=== PATIENT | female | born 1990 | race Caucasian/White ===

== ENCOUNTER 2020-01-07 14:02 | Emergency (ER) | payer MEDICAID, SELFPAY | END 2020-01-07 16:48 | disposition left against medical advice (07) | PROVIDERS: Emergency Provider Emergency Medicine | DX: R50.9 Fever, unspecified (principal); M79.10 Myalgia, unspecified site | CPT/HCPCS: 99281 ==

== ENCOUNTER 2020-04-16 08:51 | Emergency (ER) | payer MEDICAID, SELFPAY ==
--- NOTE | 2020-04-16 11:25 | PC.NURSE ---
NOT PRESENT FOR TRIAGE AT 1129
== END 2020-04-16 12:07 | disposition left against medical advice (07) ==
PROVIDERS: Emergency Provider Emergency Medicine
DX: R10.9 Unspecified abdominal pain (principal)

== ENCOUNTER 2020-08-07 14:08 | Emergency (ER) | payer MEDICAID, SELFPAY ==
[2020-08-07 14:14] VITALS: BP 133/80; PULSE 91; RESP 18; TEMP 36.4; O2SAT 98; BMI 24.2
== END 2020-08-07 16:33 | disposition left against medical advice (07) ==
PROVIDERS: Emergency Provider Emergency Medicine
DX: R10.9 Unspecified abdominal pain (principal)
CPT/HCPCS: 99281; 99282

== ENCOUNTER 2021-01-24 08:41 | Emergency (ER) | payer MEDICAID, SELFPAY | END 2021-01-24 09:42 | disposition left against medical advice (07) | PROVIDERS: Emergency Provider Emergency Medicine | DX: R21 Rash and other nonspecific skin eruption (principal) ==

== ENCOUNTER 2021-06-19 00:44 | Emergency (ER) | payer MEDICAID, SELFPAY ==
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
[2021-06-19 01:04] VITALS: BP 130/86; PULSE 116; RESP 24; TEMP 36.8; O2SAT 100; BMI 22.3
[2021-06-19 01:09] LABS: MANUAL DIFF FLAG NO
[2021-06-19 01:10] LABS: Basophils Absolute Auto 0.1 X10*3/uL (0.0-0.2); Basophils Percent Auto 0.4 % (0-2); Eosinophils Percent Auto 0.2 % (0-4); Hematocrit 34.7 % (37.0-47.0); Hemoglobin 11.6 g/dl (12.0-16.0); Imm Gran Abs Auto 0.05 X10*3/uL (0.00-0.03); Imm Gran Pct Auto 0.4 % (0.0-0.4); Lymphocytes Absolute Auto 1.4 X10*3/uL (1.2-4.9); Lymphocytes Percent Auto 9.9 % (20-40); Mean Corpuscular HGB Conc 33.4 g/dl (31.0-35.0); Mean Corpuscular Hemoglobin 30.1 pg (27.0-33.0); Mean Corpuscular Volume 89.9 fL (80.0-98.0); Monocytes Absolute Auto 0.8 X10*3/uL (0.1-1.2); Monocytes Percent Auto 5.4 % (2-11); Neutrophils Absolute Auto 11.7 x10*3/uL (2.0-8.3); Neutrophils Percent Auto 83.7 % (45-73); Platelet Count 504 X10*3/uL (160-400); Red Blood Count 3.86 X10*6/uL (4.20-5.50); Red Cell Distribution Width 11.9 % (11.0-16.0)
[2021-06-19 01:20] LABS: INTERNATIONAL NORM RATIO 1.1 (0.9-1.1)
[2021-06-19 01:29] LABS: COVID-19 Test Negative (Negative)
[2021-06-19] MEDS: Diphth,Pertus(ACell),Tet Adult 0.5 ML SYRINGE IM (01:34)
[2021-06-19] MEDS: 0.9 % Sodium Chloride 1,000 ML 999 ML IV (01:34)
[2021-06-19 01:36] LABS: Alanine Aminotransferase 10 U/L (0-31); Albumin Level 4.5 g/dL (3.5-5.0); Alkaline Phosphatase 104 U/L (39-117); Anion Gap 17 (12-20); Aspartate Amino Transferase 20 U/L (5-31); Bilirubin Total 0.9 mg/dL (0.0-1.0); Blood Urea Nitrogen 13 mg/dL (9-16); Calcium 10.1 mg/dL (8.4-10.2); Carbon Dioxide 20 mmol/L (22-29); Chloride 106 mmol/L (96-108); Estimated Glomerular Filt Rate > 60; Glucose Random 104 mg/dL (60-115); Lipase 15 U/L (8-78); Potassium 3.9 mmol/L (3.3-5.1); Sodium 139 mmol/L (135-145)
[2021-06-19] MEDS: iohexoL 350 MG/ML 100 ML INFUS..BTL 85 ML IV (01:37)
[2021-06-19 01:43] LABS: HCG Quantitative < 2 mIU/mL
[2021-06-19] MEDS: Ketorolac Tromethamine 30 MG/ML VIAL 15 MG IVPUSH (01:47)
[2021-06-19] MEDS: ondansetron HCL 4 MG/2 ML VIAL IVPUSH (02:26)
[2021-06-19 02:44] VITALS: BP 120/78; PULSE 89; RESP 16; TEMP 36.9; O2SAT 98
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
== END 2021-06-19 04:09 | disposition home or self-care (01) ==
PROVIDERS: Emergency Provider Student in an Organized Health Care Education/Training Program
DX: S30.1XXA Contusion of abdominal wall, initial encounter (principal); Z20.822 Contact with and (suspected) exposure to COVID-19; V86.95XA Unspecified occupant of 3- or 4- wheeled all-terrain vehicle (ATV) injured in nontraffic accident, initial encounter; Y93.9 Activity, unspecified; Y92.9 Unspecified place or not applicable; Y99.9 Unspecified external cause status
CPT/HCPCS: 70450; 71260; 72125; 74177; 80053; 83690; 84702; 85025; 85610; 86850; 86900; 86901; 87635; 90471; 90715; 96361; 96374; 96375; 99283; 99284; J1885; J2405; Q9967

== ENCOUNTER 2022-02-09 12:11 | Outpatient (REF) | payer MEDICAID, SELFPAY ==
--- NOTE | ~2022-02-09 | US_ITS ---
EXAMINATION: US PELVIS CLINICAL INFORMATION: Pelvic and perineal pain. COMPARISON: Pelvic ultrasound dated 08/20/[address] scan of the abdomen and pelvis dated 06/19/2021. TECHNIQUE: Ultrasound of the pelvis is performed using both transabdominal and transvaginal transducers along with Doppler. Transvaginal imaging is performed due to inadequate visualization transabdominally. FINDINGS: Uterus: The uterus is anteverted/retroflexed and measures 7.5 x 4.2 x 5.7 cm. A scar is seen in the anteroinferior uterine segment with associated deformity. Mild subjacent anechoic fluid is seen without abnormality. The endometrial stripe measures up to 0.8 cm at the level the fundus without focal abnormality. The cervix is closed with an approximate length of 4 cm. Minimal anechoic fluid within the cervical canal. Anechoic nabothian cysts posteriorly measuring 1.0 cm. Trace free fluid in the cul-de-sac. Right ovary measures 3.6 x 1.8 x 2.9 cm. Volume 10 mL. Anechoic cyst with mild debris measures 2.8 cm. Doppler showed no abnormal vascular flow. Left ovary measures 4.0 x 2.1 x 1.9 cm. Small anechoic follicles are seen measuring up to 1.6 cm. Volume 8.4 mL. Doppler showed no abnormal vascular flow. The urinary bladder is mildly distended without focal abnormality. US/US pelvic and transvaginal IMPRESSION: 1. Anteverted/retroflexed uterus with scar and associated anechoic fluid similar to the recent CT scan. No significant new abnormality. 2. Bilateral ovarian cysts/follicles demonstrate benign features, within normal limits for a patient of this age. No follow-up is recommended at this time.
== END 2022-02-09 12:12 | disposition home or self-care (01) ==
LOC: HO.US 12:11
PROVIDERS: PCP Registered Nurse; Visit Provider Registered Nurse
DX: R10.2 Pelvic and perineal pain (principal)
CPT/HCPCS: 76830; 76856

== ENCOUNTER 2022-03-14 12:06 | Outpatient (REF) | payer MEDICAID, SELFPAY ==
[2022-03-14 18:45] LABS: CT PCR NOT DETECTED (Not Detect.)
[2022-03-14 18:46] LABS: NG PCR NOT DETECTED (Not Detect.)
== END 2022-03-14 12:07 | disposition home or self-care (01) ==
LOC: HO.LNP 12:06
PROVIDERS: PCP Registered Nurse; Visit Provider Obstetrics & Gynecology
DX: Z11.3 Encounter for screening for infections with a predominantly sexual mode of transmission (principal); R10.2 Pelvic and perineal pain
CPT/HCPCS: 0353U; 99202

== ENCOUNTER 2022-03-24 13:54 | Emergency (ER) | payer MEDICAID, SELFPAY ==
--- NOTE | ~2022-03-24 | XR_ITS ---
EXAMINATION: XR CHEST CLINICAL INFORMATION: Cough and fever. COMPARISON: CT chest 09/19/2021 TECHNIQUE: 2 views of the chest were obtained. FINDINGS: No significant abnormality is noted involving the heart, lungs, mediastinum, bony thorax or soft tissues. XR/XR chest 2V IMPRESSION: Unremarkable examination.
[2022-03-24 13:57] VITALS: BP 149/84; PULSE 93; RESP 20; TEMP 36.6; O2SAT 99; BMI 25.0
--- NOTE | 2022-03-24 13:57 | ED.URI ---
HPI - URI/Sore Throat General Chief Complaint: Upper Respiratory Symptoms <AINSLEY Kent Last Filed: 03/24/22 14:01> Stated Complaint: cough, hard to breathe, fever <AINSLEY Kent Last Filed: 03/24/22 14:01> Time Seen by Provider: 03/24/22 15:43 <AINSLEY Kent Last Filed: 03/24/22 14:01> Source: patient <AINSLEY Rosenbaum Last Filed: 03/24/22 16:57> Mode of arrival: ambulatory <AINSLEY Rosenbaum Last Filed: 03/24/22 16:57> History of Present Illness HPI Narrative: 32-year-old female with no significant past medical history presenting to the ED complaining of dry cough, mild SOB, fever T-max 102 degrees, myalgias, nasal congestion, rhinorrhea, sore throat, and clogged ears x1 week. Denies chest pain, abdominal pain, pedal edema, sick contacts, recent travel <AINSLEY Rosenbaum Last Filed: 03/24/22 16:57> MD elicited complaint: cough, sore throat, rhinorrhea and nasal congestion <AINSLEY Rosenbaum Last Filed: 03/24/22 16:57> Related Data Home Medications: Previous Rx's Medication Instructions Recorded benzonatate 100 mg capsule 100 mg PO TID PRN cough #14 caps 03/24/22 fluticasone propionate 50 2 spray intranasal DAILY #16 grams 03/24/22 mcg/actuation nasal spray,suspension (Flonase Allergy Relief) prednisone 20 mg tablet 40 mg PO DAILY 5 days #10 tabs 03/24/22 <AINSLEY Kent Last Filed: 03/24/22 14:01> Allergies/Adverse Reactions: Allergies Allergy/AdvReac Type Severity Reaction Status Date / Time No Known Allergies Allergy Verified 03/14/22 12:16 [No Known Allergies*] <AINSLEY Kent Last Filed: 03/24/22 14:01> Review of Systems Review of Systems: Constitutional: + Fever, No Chills ENT/Mouth: + Ear clogging, + Nasal Congestion, + sore throat, + Rhinorrhea, No Swallowing Difficulty Cardiovascular: No Chest Pain, + SOB Respiratory: + Cough, No Sputum, No Wheezing Gastrointestinal: No Nausea, No Vomiting, No Abdominal pain Musculoskeletal: No joint pain, + Myalgias Skin: No Skin Lesions, No rash Neuro: No Weakness, No Numbness, No Paresthesias <AINSLEY Rosenbaum - Last Filed: 03/24/22 16:57> Yes all other systems are reviewed and are negative <AINSLEY Rosenbaum - Last Filed: 03/24/22 16:57> Constitutional: Constitutional: Reports as per HPI <AINSLEY Rosenbaum - Last Filed: 03/24/22 16:57> [facility] Past Medical History Attestation statement: The following information was validated with the patient. <AINSLEY Rosenbaum - Last Filed: 03/24/22 16:57> Medical History: Medical History No known health problems <AINSLEY Kent - Last Filed: 03/24/22 14:01> Surgical History: Surgical History H/O tubal ligation Previous section <AINSLEY Kent - Last Filed: 03/24/22 14:01> Family History Family History: Family History Maternal Grandmother Breast CA <AINSLEY Kent - Last Filed: 03/24/22 14:01> Social History Social History: Social History Patient Tobacco Use Status: Never used Tobacco <AINSLEY Kent - Last Filed: 03/24/22 14:01> Physical Exam Vital Signs: Vital Signs: Last Vital Signs Temp 98 F 03/24/22 13:57 Pulse 93 03/24/22 13:57 Resp 20 03/24/22 13:57 BP 149/84 H 03/24/22 13:57 Pulse Ox 99 03/24/22 13:57 O2 Del Method 03/24/22 13:57 BMI result Body Mass Index 25.0 <AINSLEY Kent - Last Filed: 03/24/22 14:01> Vital Signs: Last Vital Signs Temp 98 F 03/24/22 13:57 Pulse 93 03/24/22 13:57 Resp 20 03/24/22 13:57 BP 149/84 H 03/24/22 13:57 Pulse Ox 99 03/24/22 13:57 O2 Del Method 03/24/22 13:57 BMI result Body Mass Index 25.0 <AINSLEY Rosenbaum - Last Filed: 03/24/22 16:57> Vital Signs: Last Vital Signs Temp 98 F 03/24/22 13:57 Pulse 93 03/24/22 13:57 Resp 20 03/24/22 13:57 BP 149/84 H 03/24/22 13:57 Pulse Ox 99 03/24/22 13:57 O2 Del Method 03/24/22 13:57 BMI result Body Mass Index 25.0 <Ulices Lake MD - Last Filed: 03/31/22 16:24> Const: General: cooperative, healthy appearing and no acute distress <AINSLEY Rosenbaum - Last Filed: 03/24/22 16:57> Orientation/consciousness: patient oriented x3 <AINSLEY Rosenbaum - Last Filed: 03/24/22 16:57> Limitations: no limitations <AINSLEY Rosenbaum - Last Filed: 03/24/22 16:57> HEENT: Head: Yes normal to inspection and Yes atraumatic <AINSLEY Rosenbaum - Last Filed: 03/24/22 16:57> Ears: hearing grossly normal bilaterally, external ears normal, TM's normal bilaterally and mastoids normal <AINSLEY Rosenbaum - Last Filed: 03/24/22 16:57> General nose exam: Normal external nose present <AINSLEY Rosenbaum - Last Filed: 03/24/22 16:57> Face and sinus: Yes normal facial exam <AINSLEY Rosenbaum - Last Filed: 03/24/22 16:57> Mouth: Normal oral and palatal mucosa present <AINSLEY Rosenbaum - Last Filed: 03/24/22 16:57> Throat: Yes posterior oropharynx normal, Yes tonsils normal, No uvula midline, No peritonsillar mass, No uvula laterally displaced and No uvular edema <AINSLEY Rosenbaum - Last Filed: 03/24/22 16:57> Eyes: General: appearance normal, both eyes and all related structures <AINSLEY Rosenbaum - Last Filed: 03/24/22 16:57> EOM: EOMs intact bilaterally <AINSLEY Rosenbaum - Last Filed: 03/24/22 16:57> Neck: Neck: Yes normal visual inspection and Yes no meningeal signs <AINSLEY Rosenbaum - Last Filed: 03/24/22 16:57> Resp: Effort & Inspection: normal respiratory effort and no respiratory distress <AINSLEY Rosenbaum - Last Filed: 03/24/22 16:57> Auscultation: clear to auscultation bilaterally, no crackles, no rales and no rhonchi <AINSLEY Rosenbaum - Last Filed: 03/24/22 16:57> Cardio: Rate: regular rate <AINSLEY Rosenbaum - Last Filed: 03/24/22 16:57> Heart sounds: S1 normal heart sound present and S2 normal heart sound present <AINSLEY Rosenbaum - Last Filed: 03/24/22 16:57> Skin: Rashes: no rashes <AINSLEY Rosenbaum - Last Filed: 03/24/22 16:57> Wounds: no wounds <AINSLEY Rosenbaum - Last Filed: 03/24/22 16:57> Neuro: General: patient oriented x3, tone normal and no meningeal signs <AINSLEY Rosenbaum - Last Filed: 03/24/22 16:57> Gait exam (Neuro): Normal gait present <AINSLEY Rosenbaum - Last Filed: 03/24/22 16:57> Extrem: General: Yes normal to inspection, Yes no pedal edema and Yes no calf tenderness <AINSLEY Rosenbaum - Last Filed: 03/24/22 16:57> Course Course Course Narrative: BINDU- 32yoF presenting to the ED with complaints of fevers up to 102.0, sore throat, dry cough x 1 week. Has resolved nausea/vomiting. Denies any other symptoms complaints or concerns at this time. Plan: CXR, COVID/RSV/flu swab patient will be sent back to the waiting room to be evaluated [place] [facility] <AINSLEY Kent - Last Filed: 03/24/22 14:01> RME- 32yoF presenting to the ED with complaints of fevers up to 102.0, sore throat, dry cough x 1 week. Has resolved nausea/vomiting. Denies any other symptoms complaints or concerns at this time. Plan: CXR, COVID/RSV/flu swab patient will be sent back to the waiting room to be evaluated [place] [facility]. -1619--chest x-ray unremarkable. COVID-19/influenza/RSV and rapid strep negative Results discussed with patient including worrisome signs and symptoms and strict return precautions, and when to return to the emergency department. They verbalized understanding and feel safe for discharge at this time. <AINSLEY Rosenbaum - Last Filed: 03/24/22 16:57> Medical Decision Making Medical Decision Making [facility] Narrative: 32-year-old female with no significant past medical history presenting to the ED complaining of dry cough, mild SOB, fever T-max 102 degrees, myalgias, nasal congestion, rhinorrhea, sore throat, and clogged ears x1 week. On exam vital signs stable, NAD, nontoxic appearing, lungs CTA, no pedal edema. Concern for viral illness vs bronchitis vs pneumonia. Lower suspicion for ACS/PE or DVT. No evidence of GARAGE DOOR TECHNICIAN Plan: COVID-19/influenza/RSV testing, rapid strep, CXR Please refer to course for remaining clinical decision making, interpretation of labs/imaging results, and discussions with consultants and/or family members. <AINSLEY Rosenbaum - Last Filed: 03/24/22 16:57> Differential Diagnosis Differential Diagnoses: The differential diagnosis associated with the presentation includes <AINSLEY Rosenbaum Last Filed: 03/24/22 16:57> As above <AINSLEY Rosenbaum Last Filed: 03/24/22 16:57> Lab Data [facility] Lab Attestation statement: I reviewed the patient's lab results. <AINSLEY Rosenbaum Last Filed: 03/24/22 16:57> Labs: Lab Results 03/24/22 03/24/22 Range/Units 14:10 14:10 Influenza Type A (PCR) NEGATIVE (Negative) Influenza Type B (PCR) NEGATIVE (Negative) RSV RNA Qual (PCR) NEGATIVE (Negative) SARS-CoV-2 RNA (RT-PCR) NEGATIVE (Negative) S. pyogenes GrpA ANNETTA Negative (Negative) <AINSLEY Kent - Last Filed: 03/24/22 14:01> Lab Results 03/24/22 03/24/22 Range/Units 14:10 14:10 Influenza Type A (PCR) NEGATIVE (Negative) Influenza Type B (PCR) NEGATIVE (Negative) RSV RNA Qual (PCR) NEGATIVE (Negative) SARS-CoV-2 RNA (RT-PCR) NEGATIVE (Negative) S. pyogenes GrpA ANNETTA Negative (Negative) <AINSLEY Rosenbaum - Last Filed: 03/24/22 16:57> Lab Results 03/24/22 03/24/22 Range/Units 14:10 14:10 Influenza Type A (PCR) NEGATIVE (Negative) Influenza Type B (PCR) NEGATIVE (Negative) RSV RNA Qual (PCR) NEGATIVE (Negative) SARS-CoV-2 RNA (RT-PCR) NEGATIVE (Negative) S. pyogenes GrpA ANNETTA Negative (Negative) <Ulices Lake MD - Last Filed: 03/31/22 16:24> Radiology Impression Discussion of test interpretation with radiology: I have reviewed the radiologist's reading. <AINSLEY Rosenbaum - Last Filed: 03/24/22 16:57> Prescription Management I considered prescription management with: Antiviral and Antibiotic <AINSLEY Rosenbaum - Last Filed: 03/24/22 16:57> Attestation Attending Attestation: I reviewed NIGHT SHIFT MANAGER/PA/Resident note, assessment and plan. I agree with the documentation, assessment and plan unless otherwise stated. <Ulices Lake MD - Last Filed: 03/31/22 16:24> Discharge Plan Discharge Clinical Impression: Acute viral syndrome <AINSLEY Kent - Last Filed: 03/24/22 14:01> Patient Disposition: Home, Self-Care <AINSLEY Kent - Last Filed: 03/24/22 14:01> Instructions: Viral Syndrome (ED) <AINSLEY Kent - Last Filed: 03/24/22 14:01> Additional Instructions: You tested negative for COVID-19, flu, and RSV. You tested negative for strep throat Your x-rays unremarkable Flonase is a nasal decongestant. Tessalon Perles for cough, take as needed. Prednisone as a steroid Rest Stay hydrated Take Tylenol and Motrin as needed Follow-up with her doctor. If symptoms persist or worsen return to the ED <AINSLEY Kent - Last Filed: 03/24/22 14:01> Prescriptions: New prednisone 20 mg tablet 40 mg PO DAILY 5 Days Qty: 10 0RF benzonatate 100 mg capsule 100 mg PO TID PRN (Reason: cough) Qty: 14 0RF fluticasone propionate [Flonase Allergy Relief] 50 mcg/actuation spray,suspension 2 spray intranasal DAILY Qty: 16 0RF Rx Instructions: administer into each nostril <AINSLEY Kent - Last Filed: 03/24/22 14:01> Referrals: Hampton,Saniya, HUMAN RESOURCES TRAINING MANAGER [Primary Care Provider] - 1 week <AINSLEY Kent - Last Filed: 03/24/22 14:01> Interventions: ED Discharge Assessment Last Done: 03/24/22 17:07 <AINSLEY Kent - Last Filed: 03/24/22 14:01> Discharge Date/Time: 03/24/22 17:08 <AINSLEY Kent - Last Filed: 03/24/22 14:01>
[2022-03-24 14:39] LABS: IDNOW Serial# 6674DD1D; Strep A Nucleic Acid Negative (Negative)
[2022-03-24 15:05] LABS: Influenza A PCR NEGATIVE (Negative); Influenza B PCR NEGATIVE (Negative); Resp Syncy Virus RNA Qual PCR NEGATIVE (Negative); SARS COV2 PCR INHOUSE NEGATIVE (Negative)
== END 2022-03-24 17:08 | disposition home or self-care (01) ==
PROVIDERS: Physician Assistant Medical; Emergency Provider Emergency Medicine; PCP Registered Nurse
DX: B34.9 Viral infection, unspecified (principal); M79.10 Myalgia, unspecified site; R50.9 Fever, unspecified; R06.02 Shortness of breath; Z20.822 Contact with and (suspected) exposure to COVID-19; Z20.828 Contact with and (suspected) exposure to other viral communicable diseases; Z79.899 Other long term (current) drug therapy
CPT/HCPCS: 0241U; 71046; 87651; 99282; 99283

== ENCOUNTER 2022-03-29 08:00 | Outpatient (REF) | payer MEDICAID, SELFPAY ==
--- NOTE | ~2022-03-29 | MR_ITS ---
EXAMINATION: MR PELVIS WITH AND WITHOUT CONTRAST CLINICAL INFORMATION: History of C-sections with pelvic pain, lower anterior. COMPARISON: CT abdomen/pelvis 06/19/2021. TECHNIQUE: Multiplanar multisequential MR images were obtained of the pelvis with and without IV contrast. A total of 5.5 mL of intravenous Gadavist was administered. FINDINGS: The uterus is anteverted and slightly retroflexed measuring 8.5 x 3.7 x 4.8 (fundus to cervix x anteroposterior x transverse). There is myometrial thinning and scarring along the anteroinferior uterus, consistent with prior C-sections. No focal uterine mass. Normal thickness of the junctional zone. The endometrium measures 0.6 cm in thickness without discrete focal abnormality. The cervical length is 4.4 cm. There are a few T2 bright nabothian cysts in the cervix, largest measuring 1.1 cm (3:10). The T2 dark cervical stroma is preserved. No suspicious cervical mass noted. Multiple functional follicles are identified in both ovaries. No suspicious adnexal mass. The urinary bladder is mildly distended without focal abnormality. There is no adenopathy in the pelvis, small pelvic sidewall lymph nodes are nonspecific. Lower anterior abdominal wall scarring (6:11) without evidence of significant fat stranding, measurable collection or mass. In the large [id number] coronal T2 images, two normally positioned kidneys are seen without hydronephrosis. Mild colonic diverticulosis with no significant pericolonic inflammatory changes. No evidence of bowel obstruction. Visualized osseous structures are unremarkable. MR/MR pelvis wo/w con IMPRESSION: Expected postsurgical changes following prior C-sections with anterior lower uterine myometrial thinning and scarring, and lower anterior abdominal wall scar. Aside from these findings, no other significant abnormalities are noted to explain the patient's symptoms.
== END 2022-03-29 08:01 | disposition home or self-care (01) ==
LOC: HO.MRI 08:00
PROVIDERS: Visit Provider Obstetrics & Gynecology
DX: R10.2 Pelvic and perineal pain (principal)
CPT/HCPCS: 72197; A9585

== ENCOUNTER → 2022-04-19 10:03 | Outpatient (BNVA) | payer MEDICAID, SELFPAY | PROVIDERS: PCP Registered Nurse; Visit Provider Obstetrics & Gynecology | DX: R10.2 Pelvic and perineal pain (principal) | CPT/HCPCS: 99212 ==

== ENCOUNTER 2022-05-10 13:09 | Emergency (ER) | payer MEDICAID, SELFPAY ==
--- NOTE | 2022-05-10 13:18 | ED_ITS ---
HPI - Ear Problem General Chief complaint: Ear Problems Stated complaint: R ear pain/Sore throat Source: patient Mode of arrival: ambulatory Limitations: no limitations History of Present Illness HPI Narrative: 32-year-old female without significant medical history presents with severe right-sided ear pain and sore throat times a week not improving. Reports subjective fevers, chills, fatigue, malaise. Denies any sick contacts. Patient denies chest pain, shortness of breath, headache, vision changes, dizziness, difficulty controlling secretions, changes in voice, nausea, vomiting, abdominal pain, cough Related Data Previous Rx's Medication Instructions Recorded benzonatate 100 mg capsule 100 mg PO TID PRN cough #14 caps 03/24/22 fluticasone propionate 50 2 spray intranasal DAILY #16 grams 03/24/22 mcg/actuation nasal spray,suspension (Flonase Allergy Relief) prednisone 20 mg tablet 40 mg PO DAILY 5 days #10 tabs 03/24/22 amoxicillin 875 mg-potassium 1 tab PO BID 10 days #20 tabs 05/10/22 clavulanate 125 mg tablet ciprofloxacin 0.3 %-dexamethasone 4 drp otic (ears) BID 7 days #7.5 05/10/22 0.1 % ear drops,suspension mL (Ciprodex) prednisone 20 mg tablet 40 mg PO DAILY 5 days #10 tabs 05/10/22 Allergies Allergy/AdvReac Type Severity Reaction Status Date / Time No Known Allergies Allergy Verified 05/10/22 13:18 [No Known Allergies*] Review of Systems Review of Systems: Constitutional : No Weight loss, + Fever, + Chills, + Fatigue, + Malaise ENT/Mouth : + sore throat, No Rhinorrhea, + ear pain Eyes: No Eye Pain, No Swelling, No Redness Cardiovascular : No Chest Pain, No SOB, No Dyspnea on Exertion, No Orthopnea, No Edema, No Palpitations Respiratory : No Cough, No Sputum, No Wheezing Gastrointestinal : No Nausea, No Vomiting, No Diarrhea, No Constipation, No a bdominal Pain, No Hematochezia, No Melena Genitourinary : No Dysuria, No Urinary Frequency, No Hematuria, Musculoskeletal : No joint pain, + Myalgias, No Joint Swelling Skin : No Skin Lesions, No rash Neuro : No Weakness, No Numbness, No Dizziness, No Headache Psych : No Anxiety/Panic, No Depression All other systems reviewed and are negative Yes all other systems are reviewed and are negative [facility] Past Medical History Attestation statement: The following information was validated with the patient. Source: old records reviewed and nursing notes reviewed Medical History No known health problems Surgical History H/O tubal ligation Previous section Family History Family History Maternal Grandmother Breast CA Social History Social History Patient Tobacco Use Status: Never used Tobacco Physical Exam Vital Signs: Vital Signs: vss Appearance: Alert.? Oriented X3.? No acute distress.? Patient is speaking in full sentences controlling secretions well. Head: Normocephalic, atraumatic, no step-offs or deformities Eyes: Pupils equal, round and reactive to light.? ENT: Pharynx normal , uvula midline, normal tonsils, no signs of abscess. Bilateral tympanic membranes, ear canals erythematous, bulging, edema noted to ear canal. Pain with manipulation of right external ear. No pain with manipulation of left external ear. No mastoid tenderness. No submandibular adenopathy or occipital adenopathy. Neck: Normal inspection.? Neck supple.? CVS: Normal heart rate and rhythm.? Pulses normal.? Respiratory: No respiratory distress.? Breath sounds normal.? Abdomen: Soft and nontender.? Skin: Skin warm and dry.? Normal skin color.? Normal skin turgor.? Extremities: No lower extremity edema.? No calf ttp. 5/5 strength to bilateral upper and lower extremities Neuro: Oriented X 3.? No motor deficit.? No sensory deficit. CN 2-12 intact Course Reevaluation(s) Reevaluation #1: Educated patient on diagnosis and treatment plan, answered all question, patient verbalizes understanding. At this time patient will be discharged home, advised to return with new or worsening symptoms. Educated on worrisome signs and symptoms and when to return. At this time I feel comfortable discharge home. Time: 13:24 Medical Decision Making Medical Decision Making [facility] Narrative: 1323 32-year-old female presents with fatigue, malaise, myalgias, subjective fevers and chills, right-sided ear pain, sore throat x1 week physical exam significant for Pharynx normal , uvula midline, normal tonsils, no signs of abscess. Bilateral tympanic membranes, ear canals erythematous, bulging, edema noted to ear canal. Pain with manipulation of right external e ar. No pain with manipulation of left external ear. No mastoid tenderness. No submandibular adenopathy or occipital adenopathy. likely bilateral tightness media with right-sided otitis externa. No signs of mastoiditis, malignant otitis. No signs of dental abscess. No signs of peritonsillar abscess, retropharyngeal abscess, epiglottitis. Airway not compromised, patent airway. No signs of Darshan's plan viral testing however patient will be discharged home on Augmentin, Ciprodex for otitis media and externa and due to erythema and ear canal also send prednisone. Differential Diagnosis Differential Diagnoses: The differential diagnosis associated with the presentation includes likely bilateral tightness media with right-sided otitis externa. No signs of mastoiditis, malignant otitis. No signs of dental abscess. No signs of peritonsillar abscess, retropharyngeal abscess, epiglottitis. Airway not compro mised, patent airway. No signs of Darshan's Admission/Observation Consideration of admission/observation: Escalation of care including admi ssion/observation considered Not indicated Core Measures AMI core measures followed: Yes Measure exclusions: not indicated Critical Care Time Critical Care Time Critical Care Time: No Discharge Plan Discharge Clinical Impression: Otitis externa, Otitis media Patient Disposition: Home, Self-Care Instructions: Otitis Externa (ED), Ear Infection (ED) Additional Instructions: Take your medications as prescribed. If you were prescribed antibiotics today, it is important that you take your medication to their entirety, do not skip any doses, do not finish them early. Follow-up with your primary care provider this week. Follow-up with ears Nose and Throat if this does not improve or return with new or worsening symptoms Return to the emergency department with new or worsening symptoms. Such as fevers, chills, chest pain, shortness of breath, nausea, vomiting, dizziness, headache, vision changes, lethargy In case of emergency call 911 Prescriptions: New prednisone 20 mg tablet 40 mg PO DAILY 5 Days Qty: 10 0RF amoxicillin-pot clavulanate 875-125 mg tablet 1 tab PO BID 10 Days Qty: 20 0RF ciprofloxacin-dexamethasone [Ciprodex] 0.3-0.1 % drops,suspension 4 drp otic (ears) BID 7 Days Qty: 7.5 0RF No Action prednisone 20 mg tablet 40 mg PO DAILY 5 Days Qty: 10 0RF benzonatate 100 mg capsule 100 mg PO TID PRN (Reason: cough) Qty: 14 0RF fluticasone propionate [Flonase Allergy Relief] 50 mcg/actuation spray,suspension 2 spray intranasal DAILY Qty: 16 0RF Rx Instructions: administer into each nostril Referrals: Saniya Henson FNP [Primary Care Provider] - 2 days Stand Alone Forms: Work/School Release
[2022-05-10 13:19] VITALS: BP 118/73; PULSE 100; RESP 19; TEMP 36.6; O2SAT 99; BMI 25.0
[2022-05-10 14:07] LABS: COVID-19 Test Negative (Negative); IDNOW Serial# BCCEAD1C
[2022-05-10 14:09] LABS: IDNOW Serial# 9DB6401D; Influenza A Negative (Negative); Influenza B2 Negative (Negative)
[2022-05-10 14:09] LABS: IDNOW Serial# 6674DD1D; Strep A Nucleic Acid Negative (Negative)
== END 2022-05-10 13:34 | disposition home or self-care (01) ==
LOC: HO.ED 13:31
PROVIDERS: Physician Assistant; Emergency Provider Emergency Medicine Emergency Medical Services; PCP Registered Nurse
DX: H66.93 Otitis media, unspecified, bilateral (principal); H60.91 Unspecified otitis externa, right ear; J02.9 Acute pharyngitis, unspecified; Z20.822 Contact with and (suspected) exposure to COVID-19
CPT/HCPCS: 36415; 87502; 87635; 87651; 99282; 99283

== ENCOUNTER → 2022-07-07 12:32 | Outpatient (BNVA) | payer MEDICAID, SELFPAY | PROVIDERS: PCP Registered Nurse; Referring Provider Registered Nurse; Visit Provider Surgery | DX: L72.3 Sebaceous cyst (principal) | CPT/HCPCS: 99202 ==

== ENCOUNTER 2022-07-25 07:48 | Day surgery (SDC) | payer MEDICAID, SELFPAY ==
[2022-07-20 09:46] VITALS: BMI 26.1
--- NOTE | 2022-07-22 10:12 | HO.ANESPROP2 ---
Documented by User: Iman Abdalla NP 07/22/22 10:13 HPI - Anesthesia Eval Consult details Narrative: 32yo F for Left Wide Local Excision Perineal Mass PMFSH Active Problems Active Problems: All Active Problems (Updated 05/11/22 @ 00:02 by Vaughn Coppola) Sebaceous cyst (Acute) Pelvic pain (Acute) Past Medical History Medical History No known health problems Family History Family History Maternal Grandmother Breast CA Surgical History Surgical History H/O tubal ligation Previous section Social History Social History Patient Tobacco Use Status: Never used Tobacco Second Hand Smoke Exposure: No Meds Allergies Allergy/AdvReac Type Severity Reaction Status Date / Time No Known Allergies Allergy Verified 07/07/22 12:41 [No Known Allergies*] Exam Exam Date and Time: July 22, 2022 1012 Height,Weight and Vital Signs: Height 4 ft 11 in Weight 58.513 kg Assessment and Plan Assessment Anesthesia Assessment: Chart Reviewed Documented by User: Babatunde Woo MD 07/25/22 17:30 PMFSH Past Medical History Medical History No known health problems Functional capacity: independent ambulation Family History Family History Maternal Grandmother Breast CA Family history of problems with anesthesia: No Surgical History Surgical History H/O tubal ligation Previous section History of Problems with Anesthesia: No Social History Social History Patient Tobacco Use Status: Never used Tobacco Second Hand Smoke Exposure: No Meds Allergies Allergy/AdvReac Type Severity Reaction Status Date / Time No Known Allergies Allergy Verified 07/07/22 12:41 [No Known Allergies*] Exam Airway Mallampati Class: III TM Dist: >3cm Neck ROM: Full Loose/Missing/Broken Teeth: Yes Assessment and Plan Assessment Anesthesia Assessment: Anesthesia Plan Discussed Final Anesthetic Review Family History of Problems with Anesthesia: No History of Problems with Anesthesia: No NPO: Yes ASA Class: II Final Preanesthetic Review: Meds/Allgs Chart Reviewed, Consent Obtained/Reviewed and Anes Risks/Benef Reviewed Patient Risk: Intermediate Procedure Risk: Intermediate Anesthetic Plan Anesthetic Plan: MAC: and Agree w/ Assess. and Plan Disposition: Standard PACU
--- NOTE | 2022-07-22 12:42 | MHC.SHP ---
Pre-Procedural Eval Section A Date of Service: 07/22/22 The patient is an INPATIENT: No Changes since office visit: No Cold of Flu in the past 2 weeks, No New Medical Problems, No Changes in Medication and No Patient answered all questions The History & Physical has been completed within 30 days and I have reviewed it.: Yes Section B Chief Complaint: Sebaceous cyst Allergies: Allergies Allergy/AdvReac Type Severity Reaction Status Date / Time No Known Allergies Allergy Verified 07/07/22 12:41 [No Known Allergies*] Plan I have reviewed the history and physical and performed a pertinent physical examination on my patient. No changes have occurred unless specified. Time Spent With Patient Time: Total time managing care of this patient today ____ minutes.
[2022-07-25 08:55] VITALS: BP 113/78; PULSE 67; RESP 18; TEMP 37.1; O2SAT 98
--- NOTE | 2022-07-25 12:01 | P.OP_ITS ---
Operative Note Operative Note Date of Service: 07/25/22 Narrative: Preoperative diagnosis: [] Left perineal mass/sebaceous cyst Postop diagnosis: [] same Procedure [] excision left perineal sebaceous cyst Surgeon: [] Jimi Insulation Worker Interior Surface: [] helena Nevarez Type of Anesthesia: [] MAC Indication for surgery: [] final specimen measured approximately 4 x2 cm consistent with a large sebaceous cyst of Left perineum. Findings: [] patient brought to operating room, placed on operative table supine position, after adequate level of MAC anesthesia was induced, patient was placed in lithotomy position and the perineum prepped and draped in usual sterile fashion. 1% lidocaine/ 0.5% Marcaine infiltration of the premarked area in question for excision was performed and then a transverse by elliptical incision encompassing the mass in question was carried down through skin, subcutaneous tissue, and undermined using initially scalpel followed by Bovie. Specimen sent to pathology. The wound Was irrigated, secured hemostasis, and closed using interrupted inverted dermal 3-0 Vicryl sutures followed by Steri-Strips and sterile dressings. Sponge, needle, and instrument counts reported to be correct. Patient tolerated the procedure well and emerged anesthesia stable condition. EBL minimal
[2022-07-25 12:10] VITALS: BP 102/67; PULSE 79; RESP 16; TEMP 36.1; O2SAT 99
[2022-07-25 12:25] VITALS: BP 114/79; PULSE 77; RESP 16; TEMP 36.6; O2SAT 99
== END 2022-07-25 13:48 | disposition home or self-care (01) ==
PROVIDERS: PCP Registered Nurse; Visit Provider Surgery
PROC: (CPT 11424; principal; 2022-07-25 10:20)
DX: L72.3 Sebaceous cyst (principal)
CPT/HCPCS: 11424; 88304; J0690; J2250; J2795; J3010

== ENCOUNTER → 2022-08-03 10:35 | Outpatient (BNVA) | payer MEDICAID, SELFPAY | PROVIDERS: PCP Registered Nurse; Visit Provider Surgery ==

== ENCOUNTER 2023-04-27 09:55 | Outpatient (REF) | payer MEDICAID, SELFPAY ==
[2023-05-02 12:38] LABS: HPV mRNA E6/E7 rflx Not Detected (Not Detected)
== END 2023-04-27 09:56 | disposition home or self-care (01) ==
LOC: HO.LNP 09:55
PROVIDERS: PCP Registered Nurse; Visit Provider Obstetrics & Gynecology
DX: Z01.419 Encounter for gynecological examination (general) (routine) without abnormal findings (principal); Z98.51 Tubal ligation status
CPT/HCPCS: 87624; 88142; 99395

== ENCOUNTER 2023-04-27 09:55 | Outpatient (AMB) | payer MEDICAID, SELFPAY ==
--- NOTE | 2023-04-27 09:59 | A.OFFVIS_ITS ---
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 sebaceous cyst Publications Production Supervisor Required: No Information Interpreted: non-clinical & clinical Health Sanitarian: Health Sanitarian Present (Ruby Partida GABBY) Accompanied by: Self / Same As Patient Allergies No Known Allergies [No Known Allergies*] Allergy (Verified 04/27/23 10:05) Is last menstrual period known: Yes Last menstrual period: 04/17/23 HPI HPI Comments History of Present Illness Details Presenting for annual exam. No complaints. 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 Sexually active: No Sexual orientation: Straight/Heterosexual Gender identity: Female Female Reproductive History Menstrual Age of Menarche: 11 Date of last menstrual period: 04/17/23 control method: permanent sterilization Total pregnancies: 3 Full term: 3 Number of Living Children: 3 Review of Systems Const All systems reviewed & are unremarkable except as noted in HPI and below Card Reports as per HPI Resp Reports as per HPI GI Reports as per HPI and Reports no additional complaints Reports as per HPI Physical Exam Vital Signs: BMI result Body Mass Index 24.2 Const General: cooperative, healthy appearing and comfortable Chest Chest palpation & inspection: normal inspection of the chest and normal palpation of entire chest wall Breast/axilla inspection: normal inspection of the breasts and normal inspection of the axillae Breast/axilla palpation: normal palpation of the breasts, normal palpation of the axillae and no axillary lymphadenopathy Resp Effort & Inspection: normal respiratory effort Auscultation: clear to auscultation bilaterally Percussion: percussion normal Cardio Palpation: normal PMI Rate: regular rate Rhythm: regular rhythm Heart sounds: no murmurs and no rubs Peripheral pulses: Peripheral pulses 2+ throughout GI Inspection: Yes normal to inspection Palpation (GI): Soft to palpation, nontender, no guarding, not rigid and No hepatosplenomegaly present Percussion: Yes normal to percussion Auscultation: normal bowel sounds Rectal Exam - Female: deferred General: Yes bladder normal to palpation External Female Exam: No lesion Speculum Exam - Vagina: normal appearance of the vagina, normal palpation, normal vaginal discharge and not erythematous Speculum Exam - Cervix: normal appearance of the cervix and normal palpation Bimanual exam- vagina & uterus: normal bimanual exam, normal palpation, uterine size normal, bladder normal to palpation, consistency normal and normal palpation Bimanual Exam- Adnexa, other: normal adnexae, no masses and no tenderness Assessment & Plan Assessment & Plan (1) Well woman exam: Code(s): Z01.419 - Encounter for gynecological examination (general) (routine) without abnormal findings Plan: Cotesting done. Counseled the patient about the recommended dietary allowance of 1000 mg of Calcium & 600 IU of vitamin D. The patient was instructed to perform monthly self-breast exams and to schedule an annual exam in a year; All questions answered and the patient verbalized understanding. Instructed the patient to schedule annual exam in a year Coding Level of Care Code Est Pt Prev Care 18-39y(63652) Diagnoses Well woman exam Z01.419
[2023-04-27 10:04] VITALS: BP 108/66; BMI 24.2
== END 2023-04-27 10:27 | disposition home or self-care (01) ==
PROVIDERS: PCP Registered Nurse; Visit Provider Obstetrics & Gynecology
DX: Z01.419 Encounter for gynecological examination (general) (routine) without abnormal findings (principal)
CPT/HCPCS: 99395

== ENCOUNTER 2024-05-03 09:51 | Outpatient (REF) | payer MEDICAID, SELFPAY ==
--- NOTE | ~2024-05-03 | US_ITS ---
EXAMINATION: US ABDOMEN LIMITED CLINICAL INFORMATION: Umbilical vein.. COMPARISON: Correlated to CT dated June 19, 2021. TECHNIQUE: Real-time imaging of the umbilical region using grayscale and color Doppler technique.. FINDINGS: Limited exam. There is an isoechoic soft tissue abnormality in the umbilical region with the likely 7 mm abdominal wall defect. US/US abdomen limited IMPRESSION: Umbilical hernia through a 7 mm abdominal wall defect. Electronically signed by: Christiano Redmond MD 05/03/2024 11:01 AM EDT
== END 2024-05-03 09:52 | disposition home or self-care (01) ==
LOC: HO.US 09:51
PROVIDERS: PCP Registered Nurse; Visit Provider Registered Nurse
DX: K42.9 Umbilical hernia without obstruction or gangrene (principal)
CPT/HCPCS: 76705

== ENCOUNTER → 2024-05-03 09:56 | Outpatient (BNV) | payer MEDICAID, SELFPAY | PROVIDERS: PCP Registered Nurse; Visit Provider Radiology Diagnostic Radiology | DX: K42.9 Umbilical hernia without obstruction or gangrene (principal) | CPT/HCPCS: 76705 ==

== ENCOUNTER 2024-05-06 08:28 | Outpatient (AMB) | payer MEDICAID, SELFPAY ==
--- NOTE | 2024-05-06 08:31 | MHC.OFFVIS ---
Intake Visit Reasons: Umbilical Hernia Intake Note: Patient referred by pcp [facility] for Umbilical hernia. Patient c/o: pain when lifting. Industrial Order Clerk Required: No Accompanied by: Self / Same As Patient Allergies No Known Allergies [No Known Allergies*] Allergy (Verified 05/06/24 08:32) HPI Comments Details: Patient presents with a roughly 2 year history of a symptomatic enlarging umbilical hernia. Because of progression of symptoms, she presents here for further evaluation of like to have this repaired. She otherwise tolerating a diet. He has regular bowel habits. When she especially does workouts, the hernia becomes very symptomatic. Chart was reviewed and patient evaluated. 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 Bilateral groin exam negative. Mildly corpulent abdomen. Roughly 3 cm irreducible umbilical hernia Assessment & Plan Assessment & Plan (1) Incarcerated umbilical hernia: Code(s): K42.0 - Umbilical hernia with obstruction, without gangrene Category: Surgical Plan Risks, benefits, alternatives of open umbilical hernia repair with mesh were reviewed with the patient included but not limited to bleeding, infection, recurrence, numbness, pain, scarring, bowel injury and the patient wishes to proceed. All questions answered. Arrangements will be made for this on a day which is convenient for her. Coding Level of Care Code New Pt Level 5 (98233) Diagnoses Incarcerated umbilical hernia K42.0
== END 2024-05-06 08:36 | disposition home or self-care (01) ==
LOC: HO.HGS 08:28
PROVIDERS: PCP Registered Nurse; Referring Provider Registered Nurse; Visit Provider Surgery
DX: K42.0 Umbilical hernia with obstruction, without gangrene (principal)
CPT/HCPCS: 99214

== ENCOUNTER → 2024-05-06 08:28 | Outpatient (BNVA) | payer MEDICAID, SELFPAY | PROVIDERS: PCP Registered Nurse; Referring Provider Registered Nurse; Visit Provider Surgery | DX: K42.0 Umbilical hernia with obstruction, without gangrene (principal) | CPT/HCPCS: 99212 ==

== ENCOUNTER 2024-06-06 10:29 | Day surgery (SDC) | payer MEDICAID, SELFPAY ==
--- OUTSIDE RECORDS SUMMARY | 2024-05-08 08:09 | XMS_ITS | Encounter Summary ---
Author Organization [facility] Address [address] [place] [address] Care Team Providers Care Overlock Operator Name Role Phone Physician, Pcp Unknown Primary Care Provider Hope vailable Reason for Visit * Reason Comments Eye Problem Swelling beneath bot h eyes Encounter Details Date Type Department Care Team (Late st Contact Info) Description 05/04/2024 10:00 PM EDT - 05/05/2024 1:33 AM EDT Emergency [facility] Emergency [address] [place] [address] Periorbital cellulitis, unspecified laterality (Primary Dx) Discharge Disposition: Home or Self Care Social History Tobacco Use Types Packs/Day Years Used Date Smoking Tobacco: Never Assessed Comments Unknown Sex and Gender Information Value Date Recorded Sex Assigned at Female 05/04/2024 11:35 PM EDT Legal Sex Female 1:02 PM EST Gender Identity Female 05/04/2024 11:35 PM EDT Sexual Orientation Straight 05/04/2024 11 :35 PM EDT documented as of this encounter Last Filed Vital Signs Vital Sign Reading Time Taken Comments Blood Pressure 123/84 05/04/2024 8:20 PM EDT Pulse 91 05/04/2024 8:20 PM EDT Temperature 36.6 ??C (97.9 ??F) 05/04/2024 8:20 PM ED T Respiratory Rate 16 05/04/2024 8:20 PM EDT Oxygen Saturation 99% 05/04/2024 8:20 PM EDT Inhaled Oxygen Concentration - - Weight 60.3 kg (133 lb) 05/04/2024 8:20 PM EDT Height 149.9 cm (4' 11 ) 05/04/2024 8:20 PM EDT Body Mass Index 26.86 05/04/2024 8:20 PM EDT documented in this encounter Discharge Instructions * Discharge Instructions* AINSLEY Branch - 05/05/2024 1:28 AM EDT You are seen in the ER today for concerns over eye swelling, redness, itchiness after having your eyelashes done at the salon yesterday. We are unable at this point determine if this is early on in an infection or if this is more of allergic reaction. Will be covering for both. Your symptoms should begin to improve within a day of starting antibiotics. But you should finish all of the antibiotic pills. Otherwise, the infection might come back. Please take your antibiotic with food, as this may prevent stomach upset. Please return to the ER if you experience any allergic reactions to the medication such as hives, facial swelling, and difficulty breathing. You may take [id number]-[id number] prebiotic and probiotic to help your gut health. It was a pleasure caring for you today in the emergency department. Please return to the emergency department if you begin to experience any new onset chest pain, shortness of breath, uncontrolled fevers, severe abdominal pain, loss of consciousness, uncontrolled vomiting, uncontrolled diarrhea, or for any other reason you feel is necessary. Please follow-up with your PCP about this visit. Examination and treatment you received in the emergency department has been rendered on an EMERGENCY basis only. It is not intended to be a substitute for or an effort to provide complete medical care. You should follow-up with your primary care provider. Please report to your physician any new or remaining problems, because it is impossible to recognize and treat all elements of injury or illness in a single emergency department visit. If you do not have a primary care provider or require a referral, a follow-up doctor hospital nurse liaison for the emergency department will be provided in your discharge packet. In the event that you're unable to obtain a followup appointment in a timely fashion, OR you are not getting any better, OR you are getting worse, OR you develop any symptoms of concern, please return here immediately for further evaluation. The emergency department is open 24 hours a day, 7 days aweek. Your discharge report is based on information that was available when you were in the emergency department If you do not have a primary care provider, please contact one of the following to make arrangements to follow up. [facility] Sampson [facility] Gibson [facility] Velarde [facility] Garcia * Attachments The following attachments cannot be sent through Care Everywhere. * Cellulitis: Eye (Azeri) documented in this encounter Medications at Time of Discharge cetirizine (ZyrTEC) 10 mg tablet Take 1 tablet (10 mg total) by mouth 1 (one) time each day. 30 each 05/05/2024 05/05/2025 clindamycin (CLEOCIN) 150 mg capsule Take 2 capsules (300 mg total) by mouth 3 (three) times a day for 7 days. 28 capsule 05/05/2024 05/12/2024 documented as of this encounter Ordered Prescriptions Prescription Sig Dispense Quantity Refills Last Filled Start Date End Date clindamycin (CLEOCIN) 150 mg capsule Take 2 capsules (300 mg total) by mouth 3 (three) times a day for 7 days. 28 capsule 05/05/2024 5 cetirizine (ZyrTEC) 10 mg tablet Take 1 tablet (10 mg total) by mouth 1 (one) time each day. 30 each 05/05/2024 6 documented in this encounter Discharge Disposition Disposition Code Departure Means Destination Comment s Home or Self [facility]itentiary PT PROVIDED DISCHARGE INSTRUCTIONS, PLAN OF CARE, PRESCRIPTION, PT VERBALIZES UNDERSTANDING documented in this encounter Progress Notes * Mattie Mason RN - 05/04/2024 8:21 PM EDT Pt woke this morning with slight swelling beneath left eye. Took a benadryl and went to sleep. Wokewith increased swelling to left and slight swelling beneath right eye. States eyes are itchy and left eye is slightly painful with yellow drainage. No known allergies. Pt has false lashes that she had applied 2 days prior. Swelling beneath both eyes L>R. Conjuctiva slightly reddened, dried yellow drainage noted aroundleft eye. PERRLA * AINSLEY Branch - 05/04/2024 8:03 PM EDT Emergency Medicine Note Patient Name: Pauline Britt Initial Evaluation: 05/04/2024 : 1990 Patient's PCP: Pcp Unknown Physician Emergency Physician: AINSLEY Branch History of Present Illness Chief Complaint: Chief Complaint Patient presents with ??? Eye Problem Swelling beneath both eyes HPI: ROS: I have performed a ROS with the pertinent positives and negatives documented in the history ofpresent illness. Previous History History reviewed. No pertinent past medical history. History reviewed. No pertinent surgical history. No family history on file. has No Known Allergies. No current facility-administered medications on file prior to encounter. No current outpatient medications on file prior to encounter. Physical Exam Physical Exam ED Triage Vitals [05/04/242019] Temp Heart Rate Resp BP 36.6 ??C (97.9 ??F) 91 16 123/84 SpO2 Temp Source Heart Rate Source Patient Position 99 % Oral Monitor Sitting BP Location FiO2 (%) Left arm;Upper -- Results Labs Reviewed - No data to display Abnormal Labs Reviewed - No data to display No orders to display I have discussed the incidental/abnormal imaging and/or lab abnormalities with the patient and haveinstructed them the need for further evaluation and workup with their primary care doctor. I have provided the patient with a paper copy of the abnormality. The laboratory results, imaging results and other diagnostic exam results were reviewed in the EMR. EKG Interpretation Critical Care Time None Medical Decision Making Medications - No data to display Medical Decision Making Clinical Impressions as of 05/05/24 020 Periorbital cellulitis, unspecified laterality Procedures Procedures Diagnosis No diagnosis found. Disposition Data Unavailable ED Prescriptions None Physician Attestation AINSLEY Branch 05/05/24 0108 AINSLEY Branch 05/05/24 020 Cosigned by Chanelle Ramirez MD at 05/05/2024 9:33 AM EDT documented in this encounter Plan of Treatment Not on file documented as of this encounter Visit Diagnoses Diagnosis Periorbital cellulitis, unspecified laterality- Primary documented in this encounter Administered Medications Inactive Administered Medications - up to 3 most recent administrations Medication Order MAR Action Action Date Dose Rate Site clindamycin (CLEOCIN) capsule 300 mg 300 mg, oral, Once, On 05/05/24 at 0059, For 1 dose, Indication: Head/Ear/Eye/Nose/Throat Coverage Given 05/05/2024 1:13 AM EDT 300 mg documented in this encounter Active and Recently Administered Medications Times are shown in EDT. Scheduled Medication Order 05/03/2024 05/04/2024 05/05/2024 clindamycin (CLEOCIN) capsule 300 mg (COMPLETED) 300 mg, oral, Once, On 05/05/24 at 0059, For 1 dose, Indication: Head/Ear/Eye/Nose/Throat Coverage 0113 (Given - Provid er: Cindy Paez RN) documented in this encounter Orders Medications Ordered That Joseph ht Not Have Been Administered Count Last Ordered Date First Ordered Date clindamycin (CLEOCIN) capsule 300 mg 1 04/08 documented in this encounter Care Teams Overlock Operator Relationship Specialty Start Date End Date Physician, Pcp Unknown PCP - General 05/04/24 documented as of this encounter
--- OUTSIDE RECORDS SUMMARY | 2024-05-08 08:09 | XMS_ITS | Encounter Summary ---
Demographics Address [address] [place] [address] [address] [place] [address] Work Phone Mobile Phone Home Phone Email Address Preferred Language es Marital Status Single Bahai Affiliation Unknown Race Other Race Ethnic Group or Author Organization [employer] Address [address] [place] [address] 7[address] [place] [address] Care Team Providers Care Editor Greeting Card Name Role Phone Saniya Henson Primary Care Provider [phone] Reason for Referral * Imaging (STAT) - Closed Specialty Diagnoses / Procedures Referred By Yonathan t Referred To Contact Radiology Diagnoses Umbilical hernia without obstruction and without gangrene Procedures US Abdomen Limited Saniya Henson FNP [address] [place] [address] Phone: tel: fax: [address] Phone: tel: fax: Referral ID Status Reason Start Date Expiration Date Visits Re quested Visits Authorized [id number] Closed 05/03/2024 05/03/2025 1 1 * Consultation (Urgent) - Authorized Specialty Diagnoses / Procedures Referred By Contese t Referred To Contact General Surgery Diagnoses Umbilical hernia without obstruction and without gangrene Saniya Henson FNP [address] [place] [address] Phone: tel: fax: [facility] General Surgeons [address] 3rd Floor [place], [place] Phone: tel: fax: Referral ID Status Reason Start Date Expiration Date Visits Requested Visits Authorized [id number] Authorized Specialty Services Required 05/03/2024 05/03/2025 6 6 Reason for Visit * Reason Comments Follow-up Encounter Details Date Type Department Care Team (Joe francois Contact Info) Description 05/03/2024 9:00 AM EDT Office Visit [facility] [address] [place] [address] Saniya Henson FNP [address] [place] [address] Umbilical hernia without obstruction and without gangrene (Primary Dx); Encounter for immunization Social History Tobacco Use Types Packs/Day Years Used Date Smoking Tobacco: Never Smokeless Tobacco: Never Tobacco Cessation:Counseling Given: Not Answered Alcohol Use Standard Drinks/Week Comments Not Currently 0 (1 standard drink = 0.6 oz pur e alcohol) Depression Answer Date Recorded Patient Health Questionnaire-9 Score 0 05/03/2024 Patient Health Questionnaire-9 Score 0 05/03/2024 Last PHQ-9: Questionnaire Data Not on file 0 05/03/2024 Housing Stability Answer Date Recorded What is your housing situation today? I have mannymanuel santiago 05/03/[address] you li ve. Do you have problems with any of the following? None of the above 05/03/2024 Food Insecurity Answer Date Recorded Within the past 12 months, y ou worried that your food would run out before you got money to buy more: Never True 05/03/2024 Within the past 12 months,th e food you bought just didn't last and you didn't have enough money to get more: Never True Transportation Answer Date Recorded In the past 12 months, has l ack of transportation kept you from medical appts, meetings, work or from getting things needed for daily living? No 05/03/2024 Utilities Answer Date Recorded In the past 12 months, has t he electric, gas, oil or water company threatened to shut off services in your home? No 05/03/2024 Depression Answer Date Recorded Patient Health Questionnaire-2 Score 0 05/03/2024 Internet Access Answer Date Recorded Internet Access Q1 Yes 05/03/2024 Internet Access Q2 Not on file 05/03/2024 Comments No Sex and Gender Information Value Date Recorded Sex Assigned at Female 12/06/2021 10:32 AM EDT Legal Sex Female 10:32 AM EDT Gender Identity Female 12/06/2021 10:32 AM EDT Sexual Orientation Straight 12/06/2021 10 :32 AM EDT documented as of this encounter Last Filed Vital Signs Vital Sign Reading Time Taken Comments Blood Pressure 124/88 05/03/2024 8:46 AM EDT Pulse 80 05/03/2024 8:46 AM EDT Temperature 36.4 ??C (97.5 ??F) 05/03/2024 8:46 AM ED T Respiratory Rate 18 05/03/2024 8:46 AM EDT Oxygen Saturation - - Inhaled Oxygen Concentration - - Weight 60.5 kg (133 lb 6.4 oz) 05/03/2024 8:46 A M EDT Height 149.9 cm (4' 11 ) 05/03/2024 8:46 AM EDT Body Mass Index 26.94 05/03/2024 8:46 AM EDT documented in this encounter Progress Notes * [facility] - 05/03/2024 9:00 AM EDT SUBJECTIVE: Pauline Soriano is a 34 y.o. year old female who presents for evaluation of persistent abdominal pain. . Denies recent illness, injury, or hospitalization. Last PCP visit: 2022 Acute Concerns: Umbilical pain, reports hx of hernia, reports worsening pain over the past few months worse with any physical activity. Reports sometimes feeling a very hard lump protruding from umbilicus. Denies fever, nausea vomiting Social History Social History Narrative Social History: Current living environment: Lives with 3 kids, 2 dogs (chihuaha and pit bull) Children: 3 Employment/Education: Applying to [employer] Tobacco Use: None Alcohol Use: None Marijuana Use: None Other drug use: None Reproductive Health: Sexually Active: Yes Partners are: AMAB Control: BTL Patient Active Problem List Diagnosis Anxiety Depressive disorder Past Surgical History: Procedure Laterality Date SECTION, UNSPECIFIED x3 Family History Problem Relation Name Age of Onset Diabetes type II Father Stroke Father Breast cancer Maternal Grandmother Alzheimer's disease Maternal Grandmother Breast cancer Mother's Sister Review of Systems Constitutional: Negative for fever. HENT: Negative. Respiratory: Negative for shortness of breath. Cardiovascular: Negative for chest pain. Gastrointestinal: Positive for abdominal pain. Neurological: Negative for dizziness and weakness. OBJECTIVE: There were no vitals filed for this visit. Physical Exam Constitutional: General: She is not in acute distress. Appearance: Normal appearance. HENT: Head: Normocephalic and atraumatic. Right Ear: External ear normal. Left Ear: External ear normal. Nose: Nose normal. Eyes: Conjunctiva/sclera: Conjunctivae normal. Cardiovascular: Rate and Rhythm: Normal rate and regular rhythm. Heart sounds: Normal heart sounds. Pulmonary: Effort: Pulmonary effort is normal. Breath sounds: Normal breath sounds. Abdominal: Tenderness: There is abdominal tenderness in the periumbilical area. Hernia: A hernia is present. Hernia is present in the umbilical area. Comments: Small umbilical hernia palpable with increased intra-abdominal pressure, reducible but with significant tenderness to palpation Skin: General: Skin is warm and dry. Neurological: General: No focal deficit present. Mental Status: She is alert and oriented to person, place, and time. Psychiatric: Mood and Affect: Mood normal. Behavior: Behavior normal. ASSESSMENT/PLAN 1. Umbilical hernia without obstruction and without gangrene (Primary) -Given significant tenderness will obtain stat abdominal ultrasound - Referral to general surgery, expedited - ED precautions advised to include fever, nausea/vomiting - Referral to General Surgery; Future - US Abdomen Limited; Future - Referral to General Surgery - US Abdomen Limited Follow Up: PRN; pending imaging results No current outpatient medications on file prior to visit. No current facility-administered medications on file prior to visit. Kittitian Translation: Not applicable documented in this encounter Plan of Treatment Scheduled Referrals Name Type Priority Associated Diagnoses Orde r Schedule Referral to General Surgery Outpatient Referral Urgent Umbilical hernia without obstruction and without gangrene Expected: 05/03/2024 (Approximate), Expires: 05/03/2025 documented as of this encounter Procedures Procedure Name Priority Date/Time Associated Diagnosis Comments US ABDOMEN LIMITED STAT 05/03/2024 10 :49 AM EDT Umbilical hernia without obstruction and without gangrene documented in this encounter Results * US Abdomen Limited (05/03/2024 10:49 AM EDT) Anatomical Region Laterality Modality Abdomen Ultrasound 05/03/2024 10:4 9 AM EDT Narrative 05/03/2024 11:05 AM EDT ? [facility] ?[address] ?[place] [address] ? Ultrasound Report ? Signed ? Patient: Soriano,Normary ?MR#: [id number] ?? [id number] ? : 1990 ?Acct:[id number] ? Age/Sex: 34 / F ?ADM Date: 05/03/24 ? Loc: HO.US ? Attending Dr: Saniya Henson RN L AND D ? Ordering Physician: Saniya Henson ?? Date of Service: 05/03/24 ?? Procedure(s): US abdomen limited ?? Accession Number(s): [id number] ? cc: Saniya Henson RN L AND D ? EXAMINATION: ?? US ABDOMEN LIMITED ? CLINICAL INFORMATION: ?? Umbilical vein.. ? COMPARISON: ?? Correlated to CT dated June 19, 2021. ? TECHNIQUE: ?? Real-time imaging of the umbilical region using grayscale and color ?? Doppler technique.. ? FINDINGS: ?? Limited exam. There is an isoechoic soft tissue abnormality in the ?? umbilical region with the likely 7 mm abdominal wall defect. ? US/US abdomen limited ?? IMPRESSION: ?? Umbilical hernia through a 7 mm abdominal wall defect. ? Electronically signed by: ??Christiano Redmond MD ??05/03/2024 11:01 AM ?? EDT RP ? Dictated By: ?Christiano Ryan MD ? Signed By: ?<Electronically signed by Christiano Hermosillo MD in OV> ? 05/03/24 1101 ? DD/ 1049 ? TD/TT: 05/03/24 1050 ? Car Pre Cooler: ? Procedure Note Margarito Conteh - 05/03/[address] [address] Ultrasound Report Signed Patient: Pauline SorianoMR#: [id number] : 1990Acct:[id number] Age/Sex: 34 / FADM Date: 05/03/24 Loc: HO.US Attending Dr: Saniya XAVIER Ordering Physician: Saniya Henson Date of Service: 05/03/24 Procedure(s): US abdomen limited Accession Number(s): [id number] cc: Saniya Henson EXAMINATION: US ABDOMEN LIMITED CLINICAL INFORMATION: Umbilical vein.. COMPARISON: Correlated to CT dated June 19, 2021. TECHNIQUE: Real-time imaging of the umbilical region using grayscale and color Doppler technique.. FINDINGS: Limited exam. There is an isoechoic soft tissue abnormality in the umbilical region with the likely 7 mm abdominal wall defect. US/US abdomen limited IMPRESSION: Umbilical hernia through a 7 mm abdominal wall defect. Electronically signed by: Christiano Redmond MD 05/03/2024 11:01 AM EDT RP Dictated By: Christiano Ryan MD Signed By: <Electronically signed by Christiano Hermosillo MDin OV> 05/03/24 1101 DD/ 1049 TD/TT: 05/03/24 1050 Car Pre Cooler: Saniya XAVIER IMG US PROCEDURES Final Resul t documented in this encounter Visit Diagnoses Diagnosis Umbilical hernia without obstruction and without gangrene- Primary Encounter for immunization documented in this encounter Additional Health Concerns Assessment Noted Time PHQ-9 Depression Total Score: 0 05/04/19 25 8:53 AM EDT documented as of this encounter Care Teams Editor Greeting Card Relationship Specialty Start Date End Date Saniya Henson FNP [address] [place] [id number] PCP - General Family Medicine 10/06/21 documented as of this encounter
--- OUTSIDE RECORDS SUMMARY | 2024-05-08 08:09 | XMS_ITS | Clinical Summary ---
Author Organization [facility] Address [address] [place] [address] Phone Care Team Providers Care Online Tutor Name Role Phone Physician, Pcp Unknown Primary Care Provider Hope vailable Allergies No known active allergies Medications cetirizine (ZyrTEC) 10 mg tablet Take 1 tablet (10 mg total) by mouth 1 (one) time each day. 30 each 05/05/2024 05/06/19 26 Active clindamycin (CLEOCIN) 150 mg capsule Take 2 capsules (300 mg total) by mouth 3 (three) times a day for 7 days. 28 capsule 05/05/2024 05/13/19 25 Active Encounters Date Type Department Care Team Description 05/04/2024 10:00 PM EDT - 05/05/2024 1:33 AM EDT Emergency [facility] Emergency [address] [place] [phone] Periorbital cellulitis, unspecified laterality (Primary Dx) Discharge Disposition: Home or Self Care 02/19/2024 11:43 AM EST - 02/19/2024 1:43 PM EST Emergency [facility] Emergency [address] [place] [address] Acute nonintractable headache, unspecified headache type (Primary Dx) Discharge Disposition: Home or Self Care from Last 3 Months Social History Tobacco Use Types Packs/Day Years Used Date Smoking Tobacco: Never Assessed Comments Unknown Sex and Gender Information Value Date Recorded Sex Assigned at Female 05/04/2024 11:35 PM EDT Legal Sex Female 1:02 PM EST Gender Identity Female 05/04/2024 11:35 PM EDT Sexual Orientation Straight 05/04/2024 11 :35 PM EDT Obstetrics History Last Filed Vital Signs Vital Sign Reading [...] Mass Index 26.86 05/04/2024 8:20 PM EDT Plan of Treatment Health Maintenance Due Date Last Done Comments DTaP,Tdap,and Td Vaccines (1 - Tdap) 2009 Hepatitis B Vaccines (1 of 3 - 19+ 3-dose series) 2009 Influenza Vaccine (#1) 2023 HIV Screening 11/16/2023 Hepatitis C Screening 11/16/2023 Social Influencers of Health Screening 11/16/2023 Depression Screening 05/03/2025 05/03/2024 Cervical Cancer Screening: P ap Smear 04/26/2026 04/27/2023 COVID-19 Vaccine Completed 05/03/2024, 06/06/2022 HIB Vaccines Aged Out No longer eligi ble based on patient's age to complete this topic HPV Vaccines Aged Out No longer eligi ble based on patient's age to complete this topic Hepatitis A Vaccines Aged Out No long er eligible based on patient's age to complete this topic IPV Vaccines Aged Out No longer eligi ble based on patient's age to complete this topic MMR Vaccines Aged Out No longer eligi ble based on patient's age to complete this topic Meningococcal ACWY Vaccine Aged Out N o longer eligible based on patient's age to complete this topic Meningococcal B Vacine Aged Out No lo nger eligible based on patient's age to complete this topic Pneumococcal Vaccine: Pediatrics (0 to 5 Years) and At-Risk Patients (6 to 64 Years) Aged Out No longer eligible b ased on patient's age to complete this topic RSV Immunization Patients Under 20 months Aged Out No longer eligible b ased on patient's age to complete this topic Varicella Vaccines Aged Out No longer eligible based on patient's age to complete this topic Insurance MEDICAID - [place] Care Teams Online Tutor Relationship Specialty Start Date End Date Physician, Pcp Unknown PCP - General 05/04/24
--- OUTSIDE RECORDS SUMMARY | 2024-05-08 08:09 | XMS_ITS | Encounter Summary ---
Author Organization [employer] Address [address] [place] [address] Care Team Providers Care Call Center Operator Name Role Phone Saniya Hesnon [facility] Primary Care Provider Encounter Details Date Type Department Care Team (Latest Contact Info) Description 05/03/2024 Travel Social History Tobacco Use Types Packs/Day Years Used Date Smoking Tobacco: Never Smokeless Tobacco: Never Alcohol Use Standard Drinks/Week Comments Not Currently 0 (1 standard drink = 0.6 oz pur e alcohol) Depression Answer Date Recorded Patient Health Questionnaire-9 Score 0 05/03/2024 Patient Health Questionnaire-9 Score 0 05/03/2024 Last PHQ-9: Questionnaire Data Not on file 0 05/03/2024 Housing Stability Answer Date Recorded What is your housing situation today? I have manny santiago 05/03/[address] you [...] AM EDT documented as of this encounter Plan of Treatment Not on file documented as of this encounter Visit Diagnoses Not on filedocumented in this encounter Additional Health Concerns Assessment Noted Time PHQ-9 Depression Total Score: 0 05/04/19 25 8:53 AM EDT documented as of this encounter Care Teams Call Center Operator Relationship Specialty Start Date End Date Saniya Henson FNP [address] [place] [id number] PCP - General Family Medicine 10/06/21 documented as of this encounter
--- OUTSIDE RECORDS SUMMARY | 2024-05-08 08:09 | XMS_ITS | Clinical Summary ---
Author Organization [employer] [facility] Address [address] [facility] [place] [address] [address] Care Team Providers Care Tree Climber Name Role Phone Saniya Henson [facility] Primary Care Provider [phone] Allergies No known active allergies Medications No known medications Active Problems Problem Noted Date Diagnosed Date Anxiety 02/08/2022 Depressive disorder 02/08/2022 Encounters Date Type Department Care Team Description 05/06/2024 Patient Outreach [facility] [address] [place] [address] Saniya Hensno FNP 05/03/2024 9:00 AM EDT Office Visit [facility] [address] [place] [address] Saniya Henson FNP Umbilical hernia without obstruction and without gangrene (Primary Dx); Encounter for immunization 05/03/2024 Travel 04/25/2024 Patient Outreach [facility] [address] [place] [address] Saniya Henson FNP CareCoordination (C3/CM f/u call) 04/19/2024 [address] Score [facility] (C3) Department [address] [id number] Provider, Population Health Generic 04/11/2024 Patient Outreach [facility] [address] [place] [address] Saniya Henson FNP Care Coordination (Outreach) 04/11/2024 Travel 03/28/2024 Patient Outreach [facility] [address] [place] [address] Saniya Henson FNP Care Coordination (Outreach) 2024 Patient Outreach [facility] [address] [place] [address] [facility] Care Coordination (Outreach) 02/29/2024 Telephone [facility] [address] [place] [address] Radha Terry RN Care Coordination ([facility] initial assessment/ enrollment) 02/27/2024 Patient Outreach [facility] [address] [place] [address] [facility] Care Coordination (Outreach) 02/20/2024 Patient Outreach [facility] [address] [place] [address] [facility] Care Coordination (Outreach) from Last 3 Months Immunizations Name Administration Dates Next Due Pfizer Covid-19 Vaccine 12+ 05/03/2024 Pfizer Covid-19 Vaccine 12+ Bivalent 06/06/2022 Family History Medical History Relation Name Comments Diabetes type II Father Stroke Father Alzheimer's disease Maternal Grandmother Breast cancer Maternal Grandmother Breast cancer Mother's Sister Relation Name Status Comments Father Maternal Grandmother Mother's Sister Alive Social History Tobacco Use Types Packs/Day Years [...] Orientation Straight 12/06/2021 10 :32 AM EDT Last Filed Vital Signs Vital Sign Reading Time Taken Comments Blood Pressure 124/88 05/03/2024 8:46 AM EDT Pulse 80 05/03/2024 8:46 AM EDT Temperature 36.4 ??C (97.5 ??F) 05/03/2024 8:46 AM ED T Respiratory Rate 18 05/03/2024 8:46 AM EDT Oxygen Saturation 98% 06/06/2022 9:11 AM EDT Inhaled Oxygen Concentration - - Weight 60.5 kg (133 lb 6.4 oz) 05/03/2024 8:46 A M EDT Height 149.9 cm (4' 11 ) 05/03/2024 8:46 AM EDT Body Mass Index 26.94 05/03/2024 8:46 AM EDT Plan of Treatment Health Maintenance Due Date Last Done Comments HIV Screening 1990 Alcohol/Substance Use Screening 2002 Family Planning (PISQ) 2005 Hepatitis C Screening 2008 Hepatitis B Vaccines (1 of 3 - 19+ 3-dose series) 2009 Influenza Vaccine (#1) 2023 , 02/26/2020, 12/02/2016 Depression Screening 05/03/2025 05/03/2024, 05/04/19 25 SDOH Screening 05/03/2025 05/03/2024 Tobacco Screening 05/03/2025 05/03/2024 Cervical Cancer Screening 04/26/2028 HPV/Cotest 04/26/2028 Pap Smear 04/26/2028 04/27/2023, 02/26/2020 DTaP/Tdap/Td Vaccines (5 - Td or Tdap) 01/12/2032 01/11/2022, 06/19/2021, 02/24/2021, Additional history exists Zoster Vaccines (1 of 2) 2040 RSV Patients and Patients Aged 60 years or older (1 - 1-dose 75+ series) 2065 COVID-19 Vaccine Completed 05/03/2024, 02/2022, 02/24/2021, Additional history exists HIB Vaccines Aged Out No longer eligi [...] patient's age to complete this topic Meningococcal Vaccine Aged Out No neptali mila eligible based on patient's age to complete this topic Pneumococcal Vaccine: Pediatrics (0 to 5 Years) and At-Risk Patients (6 to 49) Years) Aged Out No longer eligible based on patient's age to complete this topic RSV under 20 months Aged Out No longe r eligible based on patient's age to complete this topic Rotavirus Vaccines Aged Out No longer eligible based on patient's age to complete this topic Procedures Procedure Name Priority Date/Time Associated Diagnosis Comments US ABDOMEN LIMITED STAT 05/03/2024 10 :49 AM EDT Umbilical hernia without obstruction and without gangrene PAP SMEAR Routine 04/27/2023 10:37 AM EDT from Last 3 Months or Most Recently Relevant to Health Maintenance Results * US Abdomen Limited (05/03/2024 10:49 AM EDT) Anatomical Region Laterality Modality Abdomen Ultrasound 05/03/2024 10:4 9 AM EDT Narrative 05/03/2024 11:05 AM EDT ? [facility] ?[address] ?[place] [address] ? Ultrasound Report ? Signed ? Patient: Soriano,Normary ?MR#: [id number] ?? [id number] ? : 1990 ?Acct:[id number] ? Age/Sex: 34 / F ?ADM Date: 05/03/24 ? Loc: HO.US ? Attending Dr: Saniya Henson FRAME TABLE OPERATOR HELPER ? Ordering Physician: Saniya Henson FRAME TABLE OPERATOR HELPER ?? Date of Service: 05/03/24 ?? Procedure(s): US abdomen limited ?? Accession Number(s): [id number] ? cc: Saniya Henson FRAME TABLE OPERATOR HELPER ? EXAMINATION: ?? US ABDOMEN LIMITED ? [...] DD/ 1049 ? TD/TT: 05/03/24 1050 ? Athletic Shoe Designer: ? Procedure Note Margarito Conteh - 05/03/[address] [address] Ultrasound Report Signed Patient: Pauline SorianoMR#: [id number] : 1990Acct:[id number] Age/Sex: 34 / FADM Date: 05/03/24 Loc: JITENDRA. Attending Dr: Saniya XAVIER Ordering Physician: Saniya Henson Date of Service: 05/03/24 Procedure(s): US abdomen limited Accession Number(s): [id number] cc: Saniya Henson EXAMINATION: US ABDOMEN LIMITED [...] Christiano Redmond MD 05/03/2024 11:01 AM EDT Dictated By: Christiano Ryan MD Signed By: <Electronically signed by Christiano Hermosillo MDin OV> 05/03/24 1101 DD/ 1049 TD/TT: 05/03/24 1050 Athletic Shoe Designer: [facility] FRAME TABLE OPERATOR HELPER IMG US PROCEDURES Final Resul t * Pap Smear (04/27/2023 10:37 AM EDT) 04/27/2023 10:3 7 AM EDT 04/28/2023 9:15 AM EDT [facility] - 05/10/2023 7:21 PM EDT ----- ------- Name: Pauline Soriano ?Age/Sex: 33/F ? : 1990 Unit#: [id number] ?? Attend Dr: Lex Urena MD ?Re04/27/23 ?Status: DEP REF ? Location: HO.LNP ?Disch: ? ----- ------- SPEC : [id number] ? RECD: 04/28/23 ? STATUS: ??SOUT ? REQ NUM: [id number] ? BING: 04/27/23-1037 ? SUBM DR: Lex Urena MD ? ENTERED: ??04/28/23-1214 ?SP TYPE: Pap Smr ?OTHR DR: Saniya Henson FRAME TABLE OPERATOR HELPER ? ORDERED: ??Pap Smear ? Interpretation ?? Satisfactory for evaluation. ?? No endocervical cells seen. ?? Negative for intraepithelial lesion or malignancy. ?? Coccobacilli consistent with shift in vaginal diya. ? HPV mRNA E6/E7: ?NOT DETECTED ? This assay detects E6/E7 viral messenger RNA (mRNA) from 14 high-risk HPV types (16, 18, ?? 31, 33, 35, 39, 45, 51, 52, 56, 58, 59, 66, 68) ? HPV testing performed by [facility], [place], [place]. ??See reference laboratory ?? portion of the EMR for entire report. ?Clinical Information LMP: 04/17/23 Previous PAP test: 02/02/17, WNL ? Material Received ?? ThinPrep-Cervical Copies To: ?? [employer] FRAME TABLE OPERATOR HELPER ?? [address] [facility] ?? [place] [id number] ?? [phone] ?? Lex Urena MD ?? [address] [place] [facility] ?? [place] ?? [phone] ----- ------- Signed (signature on file) Sejal Easley 05/10/231920 ? ----- ------- ? END OF REPORT ? us Generic External Data Provider LAB CYTOLOGY YASMANYE JACQUELIN Final Result [facility] [address] [place] [id number] [phone] from Last 3 Months or Most Recently Relevant to Health Maintenance Insurance [employer] C[employer] * Guarantor: Pauline Soriano Account Type Relation to Patient Date of Phone Billing Address Personal/Family Self [address] [place] [address] Care Teams Tree Climber Relationship Specialty Start Date End Date Saniya Henson FNP [address] [place] [address] PCP - General Family Medicine 10/06/21
--- OUTSIDE RECORDS SUMMARY | 2024-05-08 08:09 | XMS_ITS | Encounter Summary ---
Author Organization [employer] Address [address] [facility] [address] [place] [address] Care Team Providers Care Boom Master Name Role Phone [place] [facility] Primary Care Provider [phone] Encounter Details Date Type Department Care Team (Late st Contact Info) Description 05/06/2024 Patient Outreach [facility] MEDICINE [address], [place] [phone] [place] [facility] [address] [place], [place] [phone] Social History Tobacco Use Types Packs/Day Years [...] documented as of this encounter Care Teams Boom Master Relationship Specialty Start Date End Date Saniya Henson FNP [address] [place] [address] PCP - General Family Medicine 10/06/21 documented as of this encounter
--- OUTSIDE RECORDS SUMMARY | 2024-05-08 08:09 | XMS_ITS | Continuity of Care Document ---
Author Name [facility] Organization [facility] Care Team Providers Care Safety Manager Name Role Phone [facility] Unavailable Unavailable Results Combined list of recent chemistry, hematology and other laboratory results from [facility] and [facility], ranging from 15 months to all on record, depending upon the facility. Order Name Results Value Reference Range Date Interpretation Specimen Comments Source Chemistry POC U HCG Negative (04/03/23 9:36 AM) [facility] Vital Signs Combined list of inpatient and outpatient Vital Signs from [facility] and [facility], ranging from 12 months to all on record, depending upon the facility. Vital Sign Value Date Comments Source Peripheral Pulse Rate 83 bpm 04/03/2023 12:21:[address] [place] [address] Systolic Blood Pressure 120 mm[Hg] 04/03/2023 12:21:[address] [place] [address] Diastolic Blood Pressure 82 mm[Hg] 04/03/2023 12:21:[address] [place] [address] Procedures Combined list of: 1) Procedures from [facility] facilities going back up to thelast 18 months, not all [place] non-surgical procedures are included; 2) All procedures from the [facility] facilities. Procedure Procedure Type Code Date Perfomer Comments Sourc e No data available for this section Ambulatory P harmacy Social History Combined list of available smoking, tobacco, and other social history from [facility] facilities. Social History Type Response Date Comment Sourc e Sexual Orientation Ambula tory Pharmacy Gender identity Ambulator y Pharmacy Sex Representation Female (finding) Unknown Organization Assessment and Plan Combined list of future care activities from [facility] facilities (e.g., assessment and plan notes, appointments, orders, and referrals). Additional future care activities may be listed in the Plan of Care section. Result Assessment and Plan Date Source Assessment and Plan Extracted from:Title : Education Note Author: YOLA MONTEJO Date: 04/03/23 05/08/[address] [place] [address] Functional Status Combined list of recent functional and cognitive assessments recorded at [facility] Functional [place] Measurement (FIM) Scale: 1 = Total Assistance (Subject = 0% +), 2 = Maximal Assistance (Subject = 25% +), 3 = Moderate Assistance (Subject = 50% +), 4 = Minimal Assistance (Subject = 75% +), 5 = Supervision, 6 = Modified [place] (Device), 7 = Complete [place] (Timely, Safely). Assessment Date/Time Source Assessment Type Assessment Skill Assessment Score Assessment Details No data available for this section
[2024-05-21 11:43] VITALS: BMI 24.2
--- NOTE | 2024-06-05 09:26 | HO.ANESPROP2 ---
Documented by User: Iman Abdalla NP 06/05/24 09:26 HPI - Anesthesia Eval Consult details Narrative: 34yo F for Repair Incarcerated Hernia Umbilical Reducible with mesh PMFSH Active Problems Active Problems: All Active Problems Incarcerated umbilical hernia (Acute) Well woman exam (Acute) Sebaceous cyst (Acute) Pelvic pain (Acute) Past Medical History Medical History No known health problems Family History Family History Maternal Grandmother Breast CA Family history of problems with anesthesia: No Surgical History Surgical History Hx of excision of mass Hx of section H/O tubal ligation History of Problems with Anesthesia: No Social History Social History Household Members: Children Housing: Apartment Are you a primary home health care social worker to a significant other at home: No Do you presently have visiting nurse or other home services: No Alcohol intake: never Patient Tobacco Use Status: Never used Tobacco Second Hand Smoke Exposure: No Use of substances other than those prescribed or required for medical reasons: No Have you been hit, kicked, punched, or otherwise hurt by someone within the past year? 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 Sexual orientation: Straight/Heterosexual Gender identity: Female Meds Allergies Allergy/AdvReac Type Severity Reaction Status Date / Time No Known Allergies Allergy Verified 06/06/24 10:51 [No Known Allergies*] Home Medications ?Medication ?Instructions ?Recorded ?Confirmed ?Last Taken ?Type No Known Home Meds 04/27/23 04/27/23 Unknown History Exam Height,Weight and Vital Signs: Height 4 ft 11 in Weight 54.431 kg Assessment and Plan Assessment Anesthesia Assessment: Chart Reviewed Final Anesthetic Review Family History of Problems with Anesthesia: No History of Problems with Anesthesia: No Documented by User: Dheeraj Clemens MD 06/06/24 13:12 PMFSH Past Medical History Medical History No known health problems Family History Family History Maternal Grandmother Breast CA Surgical History Surgical History Hx of excision of mass Hx of section H/O tubal ligation Social History Social History Household Members: Children Housing: Apartment Are you a primary home health care social worker to a significant other at home: No Do you presently have visiting nurse or other home services: No Alcohol intake: never Patient Tobacco Use Status: Never used Tobacco Second Hand Smoke Exposure: No Use of substances other than those prescribed or required for medical reasons: No Have you been hit, kicked, punched, or otherwise hurt by someone within the past year? 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 Sexual orientation: Straight/Heterosexual Gender identity: Female Meds Allergies Allergy/AdvReac Type Severity Reaction Status Date / Time No Known Allergies Allergy Verified 06/06/24 10:51 [No Known Allergies*] Home Medications ?Medication ?Instructions ?Recorded ?Confirmed ?Last Taken ?Type No Known Home Meds 04/27/23 04/27/23 Unknown History Exam Airway Mallampati Class: II TM Dist: >3cm Neck ROM: Full Assessment and Plan Assessment Anesthesia Assessment: Anesthesia Plan Discussed Final Anesthetic Review NPO: Yes ASA Class: II Final Preanesthetic Review: No Changes in Pt Med Stat, Meds/Allgs Chart Reviewed, Consent Obtained/Reviewed and Anes Risks/Benef Reviewed Patient Risk: Low Procedure Risk: Low Anesthetic Plan Anesthetic Plan: GA Disposition: Standard PACU
[2024-06-06 10:52] VITALS: BP 131/79; PULSE 73; RESP 12; TEMP 36.6; O2SAT 99; BMI 25.8
[2024-06-06] MEDS: Lactated Ringers 1,000 ML 100 ML IVCONT (11:03)
--- NOTE | 2024-06-06 13:09 | MHC.SHP ---
Pre-Procedural Eval Section A - 24 Hr Update-Section A only Date of Service: 06/06/24 The patient is an INPATIENT: No Changes since office visit: Yes Patient answered all questions; No Cold of Flu in the past 2 weeks, No New Medical Problems and No Changes in Medication The patient has been examined within 24 hours of the surgical procedure. The History & Physical has been completed within 30 days and I have reviewed it.: No Section B - Complete if H&P > 30 days Chief Complaint: Umbilical hernia with obstruction, without gangren Details of Present Illness: 34-year-old female patient presenting with a persistent umbilical hernia which developed over the last several years. She denies any significant abdominal pain, nausea, vomiting, or bowel changes. She denies any previous abdominal surgeries. She presents today for repair of this umbilical hernia with mesh. Relevant Family History (Specify if Yes): No Relevant Social History: None Present Medications: None Medical History: No relevant PMH History of Previous Operations: No relevant previous surgery Allergies: Allergies Allergy/AdvReac Type Severity Reaction Status Date / Time No Known Allergies Allergy Verified 06/06/24 10:51 [No Known Allergies*] Review of Systems Sugical H&P ROS: Negative: Constitution, Cardiovascular, Respiratory, Gastrointestinal, Genitourinary and Musculoskeletal Exam Surgical H&P Exam: Normal: HEENT, Normal: Heart, Normal: Lungs, Normal: Extremities, Normal: Skin and Normal: Neurological and Significant Findings: Abdomen (Small reducible umbilical hernia measuring approximately 2 cm in diameter) Plan Diagnosis/Plan: Unchanged I have reviewed the history and physical and performed a pertinent physical examination on my patient. No changes have occurred unless specified. 34-year-old female patient presenting with a reducible umbilical hernia which is increasing in size and causing discomfort. I reviewed the procedure, risks and alternatives and she consents to repair of this umbilical hernia with mesh. Time Spent With Patient Time: Total time managing care of this patient today ____ minutes.
[2024-06-06] MEDS: ceFAZolin Sodium/Dextrose,Iso 2 GM/50 ML PIGGYBACK IV (13:26)
--- NOTE | 2024-06-06 14:01 | W.PM.OPN ---
Operative Note Operative Note Date of Service: 06/06/24 Narrative: Preoperative diagnosis: Umbilical hernia, 2 cm Postoperative diagnosis: Same Procedure: Repair of umbilical hernia, 2 cm with mesh Surgeon: Phillip Barros MD Administrative Fellow: Ilana Nevarez PA-C; Bayron Dickson PA-C Anesthesia: General LMA Indications for procedure: 34-year-old female patient presenting with a lump in the umbilicus which increases in size with lifting and straining. She noted the hernia to develop when she started exercising. Operative findings: 2 cm fascial defect, repaired using a 4.3 cm round Ventralex mesh Specimen: None Estimated blood loss: Less than 2 mL Complications: None Procedure details: Patient was brought to the OR and placed in a supine position. After administering general anesthesia the patient's abdomen was prepped with ChloraPrep and draped in a sterile fashion. A surgical time-out was called the consent confirmed. Patient received preoperative antibiotics and Venodyne boots were in place. Local anesthesia consisting of 0.5% Sensorcaine was then infiltrated around the umbilicus. A curvilinear incision was made above the umbilicus and carried out through subcutaneous tissue up to the hernia sac. Hernia sac was dissected down to the fascial defect. This was then further dissected into the preperitoneal space. The hernia contents were then reduced into the abdominal cavity. A preperitoneal space was further dissected using blunt dissection. A 4.3 cm round Ventralex mesh was then obtained and deployed within the preperitoneal space. This was secured in 4 quadrants using the 0 Tycron suture. Fascia was then closed over the mesh using [id number] 0 Tycron sutures. Approximately 4 mL of Zenrelef was instilled below the fascia prior to complete closure of the fascia. Wounds were then irrigated with saline solution and suctioned dry. Subcutaneous tissue and dermis were then reapproximated using interrupted 3-0 Polysorb sutures. Skin was closed using a running subcuticular 4-0 Polysorb suture. Steri-Strips, 2 x 2 gauze and Tegaderm were then applied. The patient tolerated the procedure well. Sponge, instrument, and needle counts reported as correct. The patient was transferred to PACU in stable condition.
[2024-06-06 14:15] VITALS: BP 105/60; PULSE 84; RESP 16; TEMP 36.4; O2SAT 99
[2024-06-06 14:20] VITALS: BP 105/60; PULSE 84; RESP 16; TEMP 36.4; O2SAT 99
[2024-06-06 14:25] VITALS: BP 108/75; PULSE 71; RESP 17; O2SAT 99
[2024-06-06 14:30] VITALS: BP 113/77; PULSE 71; RESP 16; O2SAT 99
[2024-06-06] MEDS: oxyCODONE HCl Immed Release 5 MG TABLET PO (14:42)
[2024-06-06 14:45] VITALS: BP 110/70; PULSE 69; RESP 16; TEMP 36.4; O2SAT 99
== END 2024-06-06 15:07 | disposition home or self-care (01) ==
PROVIDERS: PCP Registered Nurse; Visit Provider Surgery
PROC: (CPT 49591; principal; 2024-06-06 12:50)
DX: K42.9 Umbilical hernia without obstruction or gangrene (principal); Z98.51 Tubal ligation status
CPT/HCPCS: 49591; C1781; C9088; J0690; J1885; J2003; J2405; J2704; J2795; J3010

== ENCOUNTER → 2024-06-06 10:29 | Outpatient (BNV) | payer MEDICAID, SELFPAY | PROVIDERS: PCP Registered Nurse; Visit Provider Surgery | DX: K42.9 Umbilical hernia without obstruction or gangrene (principal) | CPT/HCPCS: 49591 ==

== ENCOUNTER 2024-06-17 09:21 | Outpatient (AMB) | payer MEDICAID, SELFPAY ==
--- OUTSIDE RECORDS SUMMARY | 2024-06-17 09:27 | XMS_ITS | Clinical Summary ---
Author Organization [facility] Address [address] [place] [address] Phone Care Team Providers Care Sweet Goods Machine Operator Name Role Phone Physician, Pcp Unknown Primary Care Provider Hope vailable Allergies No known active allergies Medications cetirizine (ZyrTEC) 10 mg tablet Take 1 tablet (10 mg total) by mouth 1 (one) time each day. 30 each 05/05/2024 Active Encounters Date Type Department Care Team Description 05/04/2024 10:00 PM EDT - 05/05/2024 1:33 AM EDT Emergency [facility] Emergency [address] [place] [address] Periorbital cellulitis, unspecified laterality (Primary [...] of 3 - 19+ 3-dose series) 2009 HIV Screening 11/16/2023 Hepatitis C Screening 11/16/2023 Social Influencers of Health Screening 11/16/2023 Influenza Vaccine (Season Ended) 2024 Depression Screening 05/03/2025 05/03/2024 Cervical Cancer Screening: [...] age to complete this topic Meningococcal B Vaccine Aged Out No l onger eligible based on patient's age to complete [...] topic Insurance MEDICAID - [place] Care Teams Sweet Goods Machine Operator Relationship Specialty Start Date End Date Physician, Pcp Unknown PCP - General 05/04/24
--- OUTSIDE RECORDS SUMMARY | 2024-06-17 09:27 | XMS_ITS | Clinical Summary ---
Author Organization [email or web address] Address [address] [place] [address] 7t [place] [address] Care Team Providers Care Tester/Lift Trucker Name Role Phone Saniya Henson Primary Care Provider [phone] Allergies No known active allergies Medications No known medications Active Problems Problem Noted Date Diagnosed Date Anxiety 02/08/2022 Depressive disorder 02/08/2022 Encounters Date Type Department Care Team Description 06/04/2024 Patient Outreach [address] [address] Saniya Henson FNP Care Coordination (Outreach) 06/04/2024 Telephone [facility] [address] [place] [address] Saniya Henson FNP Care Coordination ([facility] program graduation) 05/24/2024 Patient Outreach [address] [address] Saniya Henson FNP Care Coordination (Outreach) 05/09/2024 Patient Outreach [address] [address] Saniya Henson FNP Care Coordination (Outreach) 05/06/2024 Patient Outreach [address] [address] Saniya Henson FNP 05/03/2024 9:00 AM EDT Office Visit [address] [address] Saniya Henson FNP Umbilical hernia without obstruction and without gangrene (Primary Dx); Encounter for immunization 05/03/2024 Travel 04/25/2024 Patient Outreach [address] [address] AlfredSaniya [facility] CareCoordination (C3/CM f/u call) 04/19/2024 Population Health [facility] [address] [address] Provider, Population Health Generic 04/11/2024 Patient Outreach [facility] [address] [place] [address] [facility] Care Coordination (Outreach) 04/11/2024 Travel 03/28/2024 Patient Outreach [facility] [address] [place] [address] [facility] Care Coordination (Outreach) from Last 3 Months [...] 02/26/2020, 12/02/2016 Depression Screening 05/03/2025 05/03/2024, 05/04/19 SDOH Screening 05/03/2025 05/03/2024 Tobacco Screening 05/03/2025 [...] EDT Narrative 05/03/2024 11:05 AM EDT ? [facility] ?[address] ?[place] [address] ? Ultrasound Report ? Signed ? Patient: Soriano,Normary ?MR#: [id number] ?? [id number] ? : 1990 ?Acct:[id number] ? Age/Sex: 34 / F ?ADM Date: 05/03/24 ? Loc: HO.US ? Attending Dr: Saniya XAVIER ? Ordering Physician: Saniya Henson ?? Date of Service: 05/03/24 ?? Procedure(s): US abdomen limited ?? Accession Number(s): [id number] ? cc: Saniya Henson PARK SERVICES SPECIALIST ? EXAMINATION: ?? US ABDOMEN LIMITED ? [...] DD/ 1049 ? TD/TT: 05/03/24 1050 ? Assembler Bonding: ? Procedure Note Yady, Image - 05/03/[address] [address] Ultrasound Report Signed Patient: Pauline SorianoMR#: [id number] : 1990Acct:[id number] Age/Sex: 34 / FADM Date: 05/03/24 Loc: HO.US Attending Dr: Saniya Henson PARK SERVICES SPECIALIST Ordering Physician: Saniya Henson Date of Service: 05/03/24 Procedure(s): US abdomen limited Accession Number(s): [id number] cc: Saniya Henson EXAMINATION: US ABDOMEN LIMITED [...] 05/03/24 1101 DD/ 1049 TD/TT: 05/03/24 1050 Assembler Bonding: [facility] PARK SERVICES SPECIALIST IMG US PROCEDURES Final Resul t * Pap Smear (04/27/2023 10:37 AM EDT) 04/27/2023 10:3 7 AM EDT 04/28/2023 9:15 AM EDT [facility] - 05/10/2023 7:21 PM EDT ----- ------- Name: Pauline Soriano ?Age/Sex: 33/F ? : 1990 Unit#: [id number] ?? Attend Dr: Lex Urena MD ?Re04/27/23 ?Status: DEP REF ? Location: HO.LNP ?Disch: ? ----- ------- SPEC : [id number] ? RECD: 04/28/23 ? STATUS: ??SOUT ? REQ NUM: [id number] ? BING: 04/27/23-1037 ? SUBM DR: Lex Urena MD ? ENTERED: ??04/28/23-5 ?SP TYPE: Pap Smr ?OTHR DR: Saniya Henson PARK SERVICES SPECIALIST ? ORDERED: ??Pap Smear ? Interpretation ?? [...] 66, 68) ? HPV testing performed by [facility], [place], [place]. ??See reference laboratory ?? portion of the EMR for entire report. ?Clinical Information LMP: 04/17/23 Previous PAP test: 02/02/17, WNL ? Material Received ?? ThinPrep-Cervical Copies To: ?? Saniya Henson PARK SERVICES SPECIALIST ?? [address] [facility] ?? [place] [id number] ?? [phone] ?? Lex Urena MD ?? [address] [facility] ?? [place] ?? [phone] ----- ------- Signed (signature on file) Sejal Lupe Easley 05/10/231920 ? ----- ------- ? END OF REPORT ? us Generic External Data Provider LAB CYTOLOGY JOSH ROPER Final Result [facility] [address] [facility] [place] [phone] from Last 3 Months or Most Recently Relevant to Health Maintenance Insurance * Guarantor: Pauline Soriano Account Type Relation to Patient Date of Phone Billing Address Personal/Family Self [address] [place], [place] [facility] * Guarantor: Pauline Soriano Account Type Relation to Patient Date of Phone Billing Address Personal/Family Self [address] [place] [address] * Guarantor: Pauline Soriano Account Type Relation to Patient Date of Phone Billing Address Personal/Family Self [address] [place] [address] * Guarantor: Pauline Soriano Account Type Relation to Patient Date of Phone Billing Address Personal/Family Self [address] [place] [address] Care Teams Tester/Lift Trucker Relationship Specialty Start Date End Date Saniya Henson FNP [address] [place] [address] PCP - General Family Medicine 10/06/21
[2024-06-17 09:30] VITALS: BP 110/76; PULSE 80; RESP 18; TEMP 37.1; BMI 25.9
--- NOTE | 2024-06-17 09:30 | A.OFFVIS_ITS ---
Vital Signs 06/17/24 09:30 Height 4 ft 11 in Weight 128 lb BMI 25.9 BP 110/76 Blood Pressure Location Lt brachial Position Sitting Respiration 18 Pulse 80 Temp 98.7 F Temp Source Temporal Artery Scan Intake Visit Reasons: S/P umbilical hernia w/mesh Intake Note: Pt states, I still have a little bit of pain but I'm mostly ok. states Motirn and tylenol are working well enough Director Of Business Operations Required: No Allergies No Known Allergies [No Known Allergies*] Allergy (Verified 06/17/24 09:33) Medication List - Last Reconciled 06/17/24 by Jeff Pimentel RN HPI HPI S/P umbilical hernia w/mesh: Details: Patient reports she is doing well about a week and a half after surgery. She reports some mild pain with ambulation around the incision site, denies pain at rest. Her pain is well controlled with [id number]-bvk-[id number] medications. Denies nausea, vomiting. She denies any discharge, redness, swelling of the incision site. States she is tolerating diet well. Endorses regular bowel movements. She denies any strenuous activity or heavy lifting, patient requests note for work she does not feel she is ready to return at this moment. [facility] Medical History No known health problems Surgical History History of umbilical hernia repair (06/06/24) Hx of excision of mass Hx of section H/O tubal ligation Family History Maternal Grandmother Breast CA Social History Household Members: Children Housing: Apartment Are you a primary health care marketing manager to a significant other at home: No Do you presently have visiting nurse or other home services: No Alcohol intake: never Patient Tobacco Use Status: Never used Tobacco Second Hand Smoke Exposure: No Current occupational status: employed 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 Sexual orientation: Straight/Heterosexual Gender identity: Female Female Reproductive History Menstrual Age of Menarche: 11 Review of Systems Const All systems reviewed & are unremarkable except as noted in HPI and below GI Reports abdominal pain (Mild pain with ambulation), Denies bloating, Denies nausea and Denies vomiting Physical Exam Vital Signs: Last Vital Signs Temp 98.7 F 06/17/24 09:30 Pulse 80 06/17/24 09:30 Resp 18 06/17/24 09:30 BP 110/76 06/17/24 09:30 BMI result Body Mass Index 25.9 Const General: healthy appearing, comfortable and no acute distress Orientation/consciousness: patient oriented x3 GI Other: Incision site healing well some Steri-Strips still intact. No surrounding erythema edema or discharge. Inspection: No distended Palpation (GI): Soft to palpation, not firm, Tenderness to palpation present (GI) (Mild incisional site tenderness) periumbilically, no guarding and not rigid Neuro General: patient oriented x3 Assessment & Plan Assessment & Plan (1) S/P umbilical hernia repair, follow-up exam: Code(s): Z09 - Encounter for follow-up examination after completed treatment for conditions other than malignant neoplasm Category: Surgical Plan 34-year-old female s/p umbilical hernia repair with mesh on 06/06/2024 presenting for follow-up. Patient is doing well, experiencing some mild periumbilical pain with ambulation denies pain at rest. Incision is healing well, no current concern for infection. Abdominal exam is largely benign aside from mild periumbilical tenderness to palpation. 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 We discussed a plan to return at the end of next week to re-evaluate in the office to be cleared for work. Current recommendations include no heavy lifting greater than 15 lb and no strenuous activity, patient can continue ambulation as tolerated. Patient will follow up sooner if needed Coding Level of Care Code Est Pt Level 3 (88513) Diagnoses S/P umbilical hernia repair, follow-up exam Z09
== END 2024-06-17 09:45 | disposition home or self-care (01) ==
PROVIDERS: PCP Registered Nurse
DX: Z09 Encounter for follow-up examination after completed treatment for conditions other than malignant neoplasm (principal)
CPT/HCPCS: 99213

== ENCOUNTER → 2024-06-17 09:21 | Outpatient (BNVA) | payer MEDICAID, SELFPAY | PROVIDERS: PCP Registered Nurse | DX: Z48.815 Encounter for surgical aftercare following surgery on the digestive system (principal); Z98.890 Other specified postprocedural states | CPT/HCPCS: 99212 ==

== ENCOUNTER 2024-06-28 09:09 | Outpatient (AMB) | payer MEDICAID, SELFPAY ==
--- NOTE | 2024-06-28 09:16 | A.OFFVIS_ITS ---
Vital Signs 06/28/24 09:22 Height 4 ft 11 in Weight 128 lb BMI 25.9 BP 106/66 Blood Pressure Location Lt brachial Position Sitting Pulse 68 Intake Visit Reasons: 1wk fuv umbilical hernia w/mesh Intake Note: Patient here for 1m s/p umbilical hernia repair. Reports incision healing well. 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 No longer experiencing pain except for some minor pulling with certain movements. States the incision site has been clean denies any discharge no redness surrounding it. She denies fever, chills, chest pain, shortness of breath. Endorses normal bowel movements, normal appetite. . She has no concerns at this time. She feels ready to return to work, plans for July 09 [facility] Medical History No known health problems Surgical History History of umbilical hernia repair (06/06/24) Hx of excision of mass Hx of section H/O tubal ligation Family History Maternal Grandmother Breast CA Social History Household Members: Children Housing: Apartment Are you a primary career based intervention coordinator to a significant other at home: No Do you presently have visiting nurse or other home services: No Alcohol intake: never Patient Tobacco Use Status: Never used Tobacco Second Hand Smoke Exposure: No Current occupational status: employed 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 Sexual orientation: Straight/Heterosexual Gender identity: Female Female Reproductive History Menstrual Age of Menarche: 11 Review of Systems Const All systems reviewed & are unremarkable except as noted in HPI and below Physical Exam Vital Signs: Last Vital Signs Pulse 68 06/28/24 09:22 BP 106/66 06/28/24 09:22 BMI result Body Mass Index 25.9 Const General: healthy appearing, comfortable and no acute distress Orientation/consciousness: patient oriented x3 Resp Effort & Inspection: normal respiratory effort and able to speak in complete sentences GI Other: Incision site appears healthy, no surrounding erythema, no discharge, no palpable fluid collection Inspection: No distended Palpation (GI): Soft to palpation, nontender, no guarding and not rigid Neuro General: patient oriented x3 Assessment & Plan Assessment & Plan (1) S/P umbilical hernia repair, follow-up exam: Code(s): Z09 - Encounter for follow-up examination after completed treatment for conditions other than malignant neoplasm Category: Surgical Plan 34-year-old female status post umbilical hernia repair with mesh on 06/06/24 presenting for routine follow-up. Patient doing very well, pain is much improved, experiences some minor pain pulling with certain movements but is otherwise feeling very well. Bowel function normal, appetite normal. Abdomen is soft and benign on exam, incision site is not concerning for infection at this time appears well healed. Patient is okay to return to work on 07/09/2024, all activity restrictions will be removed. Recommended patient slowly ramp up to baseline level of activity. Patient okay to follow-up as needed with any concerns. Coding Level of Care Code Est Pt Level 2 (36810) Diagnoses S/P umbilical hernia repair, follow-up exam Z09
[2024-06-28 09:22] VITALS: BP 106/66; PULSE 68; BMI 25.9
--- OUTSIDE RECORDS SUMMARY | 2024-06-28 09:26 | XMS_ITS | Clinical Summary ---
Author Organization [employer] Address [address] [place] [address] [address] [place] [address] Care Team Providers Care Consumer Relations Complaint Clerk Name Role Phone Saniya Henson Primary Care Provider [phone] Allergies No known active allergies Medications No known medications Active Problems Problem Noted Date Diagnosed Date Anxiety 02/08/2022 Depressive disorder 02/08/2022 Encounters Date Type Department Care Team Description 06/04/2024 Patient Outreach [address] [address] Saniya Henson FNP Care Coordination (Outreach) 06/04/2024 Telephone [facility] [address] [place] [address] Saniya Henson FNP Care Coordination ([facility] program graduation) 05/24/2024 Patient Outreach [address] [address] Saniya Henson FNP Care Coordination (Outreach) 05/09/2024 Patient Outreach [address] [address] Saniya Henson FNP Care Coordination (Outreach) 05/06/2024 Patient Outreach [address] [address] Saniya Henson FNP 05/03/2024 9:00 AM EDT Office Visit [address] [address] Saniya Henson FNP Umbilical hernia without obstruction and without gangrene (Primary Dx); Encounter for immunization 05/03/2024 Travel 04/25/2024 Patient Outreach [address] [address] [facility] CareCoordination (C3/CM f/u call) 04/19/2024 Population Health Risk Score [facility] (C3) Department [address] [place] [id number] Provider, Population Health Generic 04/11/2024 Patient Outreach [facility] [address] [place] [address] [facility] Care Coordination (Outreach) 04/11/2024 Travel from Last 3 Months Immunizations Immunization Administration Dates Next Due Pfizer Covid-19 Vaccine [...] the past 12 months, has t he [employer], gas, oil or water company threatened to [...] 3-dose series) 2009 Influenza Vaccine (#1) 2023 2, 02/26/2020, 12/02/2016 Depression Screening 05/03/2025 05/03/2024, 05/04/19 Disability Screening 05/03/2025 05/03/2024 SDOH Screening 05/03/2025 05/03/2024 Tobacco Screening 05/03/2025 [...] EDT Narrative 05/03/2024 11:05 AM EDT ? [facility] [facility] ?[address] ?[place] [address] ? Ultrasound Report ? Signed ? Patient: Soriano,Normary ?MR#: [id number] ?? [id number] ? : 1990 ?Acct:[id number] ? Age/Sex: 34 / F ?ADM Date: 05/03/24 ? Loc: HO.US ? Attending Dr: Saniya Henson SALES CONSULTANT INSURANCE ? Ordering Physician: Saniya Henson ?? Date of Service: 05/03/24 ?? Procedure(s): US abdomen limited ?? Accession Number(s): [id number] ? cc: Saniya Henson SALES CONSULTANT INSURANCE ? EXAMINATION: ?? US ABDOMEN LIMITED ? [...] DD/ 1049 ? TD/TT: 05/03/24 1050 ? Manager Medical: ? Procedure Note Yady, Image - 05/03/2024 [place] [address] Ultrasound Report Signed Patient: Pauline SorianoMR#: [id number] : 1990Acct:[id number] Age/Sex: 34 / FADM Date: 05/03/24 Loc: HO.US Attending Dr: Saniya XAVIER Ordering Physician: Saniya Henson Date of Service: 05/03/24 Procedure(s): US abdomen limited Accession Number(s): [id number] cc: Saniya Henson EXAMINATION: US ABDOMEN LIMITED [...] 05/03/24 1101 DD/ 1049 TD/TT: 05/03/24 1050 Manager Medical: [facility] SALES CONSULTANT INSURANCE IMG US PROCEDURES Final Resul t * Pap Smear (04/27/2023 10:37 AM EDT) 04/27/2023 10:3 7 AM EDT 04/28/2023 9:15 AM EDT [facility] - 05/10/2023 7:21 PM EDT ----- ------- Name: Pauline Soriano ?Age/Sex: 33/F ? : 1990 Unit#: [id number] ?? Attend Dr: Lex Urena MD ?Re04/27/23 ?Status: DEP REF ? Location: HO.LNP ?Disch: ? ----- ------- SPEC : [id number] ? RECD: 04/28/23 ? STATUS: ??SOUT ? REQ NUM: [id number] ? BING: 04/27/23-1037 ? SUBM DR: Lex Urena MD ? ENTERED: ??04/28/23-1215 ?SP TYPE: Pap Smr ?OTHR DR: Saniya Henson SALES CONSULTANT INSURANCE ? ORDERED: ??Pap Smear ? Interpretation ?? [...] 66, 68) ? HPV testing performed by [facility], [place], [place]. ??See reference laboratory ?? portion of the EMR for entire report. ?Clinical Information LMP: 04/17/23 Previous PAP test: 02/02/17, WNL ? Material Received ?? ThinPrep-Cervical Copies To: ?? Sixto,Saniya SALES CONSULTANT INSURANCE ?? [address] [facility] ?? [place] [id number] ?? [phone] ?? Lex Urena MD ?? [address] [facility] [address] [facility] ?? [place], [place] [address] ?? [phone] ----- ------- Signed (signature on file) Sejal Nicki Easley 05/10/231920 ? ----- ------- ? END OF REPORT ? us Generic External Data Provider LAB CYTOLOGY JOSH ROPER Final Result [facility] [address] [facility] [place] [phone] from Last 3 Months or Most Recently Relevant to Health Maintenance Insurance * Guarantor: Pauline Soriano Account Type Relation to Patient Date of Phone Billing Address Personal/Family Self [address] [place] [address] [facility] C[facility] * Guarantor: Pauline Soriano Account Type Relation to Patient Date of Phone Billing Address Personal/Family Self [address] [place] [address] * Guarantor: Pauline Soriano Account Type Relation to Patient Date of Phone Billing Address Personal/Family Self [address] [place] [address] * Guarantor: Pauline Soriano Account Type Relation to Patient Date of Phone Billing Address Personal/Family Self [address] [place] [address] Care Teams Consumer Relations Complaint Clerk Relationship Specialty Start Date End Date Saniya Henson FNP [address] [place] [address] PCP - General Family Medicine 10/06/21
== END 2024-06-28 09:28 | disposition home or self-care (01) ==
LOC: HO.HGS 09:10
PROVIDERS: PCP Registered Nurse
DX: Z09 Encounter for follow-up examination after completed treatment for conditions other than malignant neoplasm (principal)
CPT/HCPCS: 99212

== ENCOUNTER → 2024-06-28 09:09 | Outpatient (BNVA) | payer MEDICAID, SELFPAY | PROVIDERS: PCP Registered Nurse | DX: Z09 Encounter for follow-up examination after completed treatment for conditions other than malignant neoplasm (principal); Z87.19 Personal history of other diseases of the digestive system; Z98.890 Other specified postprocedural states | CPT/HCPCS: 99212 ==

== ENCOUNTER 2024-09-10 13:16 | Outpatient (REF) | payer MEDICAID, SELFPAY ==
--- OUTSIDE RECORDS SUMMARY | 2024-09-10 13:53 | XMS_ITS | Continuity of Care Document ---
Author Name [facility] Organization [facility] Care Team Providers Care Log Grader Name Role Phone [facility] Unavailable Unavailable Results Combined list of recent chemistry, hematology and other laboratory results from [facility] and [facility], ranging from 15 months to all on record, depending upon the facility. Order Name Results Value Reference Range Date Interpretation Specimen Comments Source Chemistry POC U HCG Negative (04/03/23 9:36 AM) [facility] Vital Signs Combined list of inpatient and outpatient Vital Signs from [facility] and [facility], ranging from 12 months to all on record, depending upon the facility. Vital Sign Value Date Comments Source Peripheral Pulse Rate 83 bpm 04/03/2023 12:21:[address] [place] [address] Systolic Blood Pressure 120 mm[Hg] 04/03/2023 12:21:[address] [place] [address] Diastolic Blood Pressure 82 mm[Hg] 04/03/2023 12:21:[address] [place] [address] Procedures Combined list of: 1) Procedures from [facility] facilities going back up to thelast 18 months, not all [place] non-surgical procedures are included; 2) All procedures from the Department [facility] facilities. Procedure Procedure Type Code Date Perfomer Comments Sourc e No data available for this section Ambulatory P harmacy Social History Combined list of available smoking, tobacco, and other social history from [facility] and [facility] facilities. Social History Type Response Date Comment Sourc e Sexual Orientation Ambula tory Pharmacy Gender identity Ambulator y Pharmacy Sex Representation Female (finding) Unknown Organization Assessment and Plan Combined list of future care activities from [facility] and [facility] facilities (e.g., assessment and plan notes, appointments, orders, and referrals). Additional future care activities may be listed in the Plan of Care section. Result Assessment and Plan Date Source Assessment and Plan Extracted from:Title : Education Note Author: YOLA MONTEJO Date: 04/03/23 09/10/[address] [place] [address] Functional Status Combined list of recent functional and cognitive assessments recorded at [facility] and [facility] (VA).VA Functional Colcord Measurement (FIM) Scale: 1 = Total Assistance (Subject = 0% +), 2 = Maximal Assistance (Subject = 25% +), 3 = Moderate Assistance (Subject = 50% +), 4 = Minimal Assistance (Subject = 75% +), 5 = Supervision, 6 = Modified Colcord (Device), 7 = Complete Colcord (Timely, Safely). Assessment Date/Time Source Assessment Type Assessment Skill Assessment Score Assessment Details No data available for this section
--- OUTSIDE RECORDS SUMMARY | 2024-09-10 13:55 | XMS_ITS | Clinical Summary ---
Author Organization [employer] Address [address] [place] [address] [address] [place] [address] Care Team Providers Care Fusing Machine Tender Name Role Phone Saniya Henson [facility] Primary Care Provider [phone] Allergies No known active allergies Medications ondansetron (Zofran) 4 MG tabletIndication s:Chronic migraine with aura without status migrainosus, not intractable Take 2 tablets (8 mg) by mouth every 8 (eight) hours if needed for nausea or vomiting for up to 7 days. 20 tablet 5 09/13/19 25 Active ibuprofen 600 MG tabletIndication s:Chronic migraine with aura without status migrainosus, not intractable Take 1 tablet (600 mg) by mouth Once daily as needed for headaches. 30 tablet 5 10/06/19 25 Active topiramate (Topamax) 25 MG tabletIndication s:Chronic migraine with aura without status migrainosus, not intractable Take 1 tablet (25 mg) by mouth Once per day. After 1 week may increase to 2 tablets (50mg) daily as tolerated. 30 tablet 11 5 09/06/19 26 Active Active Problems Problem Noted Date Diagnosed Date Anxiety 02/08/2022 Depressive disorder 02/08/2022 Encounters Date Type Department Care Team Description 09/05/2024 1:45 PM EDT Office Visit [facility] [address] [place] [address] Azar Salinas CNP History of anemia (Primary Dx); Bruising; Chronic migraine with aura without status migrainosus, not intractable 09/05/2024 Travel 09/05/2024 Telephone [facility] [address] [place] [address] [facility] Nurse Triage from Last 3 Months Immunizations Immunization Administration [...] Sign Reading Time Taken Comments Blood Pressure 128/86 09/05/2024 1:46 PM EDT Pulse 80 09/05/2024 1:46 PM EDT Temperature 36.7 C (98 F) 09/05/2024 1:46 PM EDT Respiratory Rate 18 09/05/2024 1:46 PM EDT Oxygen Saturation 99% 09/05/2024 1:46 PM EDT Inhaled Oxygen Concentration - - Weight 59.9 kg (132 lb) 09/05/2024 1:46 PM EDT Height 149.9 cm (4' 11 ) 09/05/2024 1:46 PM EDT Body Mass Index 26.66 09/05/2024 1:46 PM EDT Plan of Treatment Health Maintenance Due Date Last Done Comments HIV Screening 1990 Alcohol/Substance Use Screening 2002 Family Planning (PISQ) 2005 HPV Vaccines (1 - 3-dose series) 2005 Hepatitis C Screening 2008 Hepatitis B Vaccines (1 of 3 - 19+ 3-dose series) 2009 Influenza Vaccine (#1) 2024 , 02/26/2020, 12/02/2016 Depression Screening 05/03/2025 05/03/2024, 05/04/19 25 Disability Screening 05/03/2025 05/03/2024 SDOH Screening 05/03/2025 05/03/2024 Tobacco Screening 09/05/2025 09/05/2024 Cervical Cancer Screening 04/26/2028 HPV/Cotest 04/26/2028 Pap [...] Years) and At-Risk Patients (6 to 49) Years Aged Out No longer eligible based on patient's age to complete this topic RSV under 20 months Aged Out No longe r eligible based on patient's age to complete this topic Rotavirus Vaccines Aged Out No longer eligible based on patient's age to complete this topic Procedures Procedure Name Priority Date/Time Associated Diagnosis Comments PAP SMEAR Routine 04/27/2023 10:37 AM EDT from Last 3 Months or Most Recently Relevant to Health Maintenance Results * Pap Smear (04/27/2023 10:37 AM EDT) 04/27/2023 10:3 7 AM EDT 04/28/2023 9:15 AM EDT [facility] - 05/10/2023 7:21 PM EDT ----- ------- Name: Pauline Soriano Age/Sex: 33/F : 1990 Unit#: [id number] Attend Dr: Lex Urena MD Re04/27/23 Status: DEP REF Location: [facility] Disch: ----- ------- SPEC : [id number] RECD: 04/28/23 STATUS: MILLICENT BLUE NUM: [id number] BING: 04/27/23-1037 [facility] DR: Lex Urena MD ENTERED: 04/28/23-1215 SP TYPE: Pap Smr OTHR DR: Saniya Henson HOPPER ATTENDANT ORDERED: Pap Smear Interpretation Satisfactory for evaluation. No endocervical cells seen. Negative for intraepithelial lesion or malignancy. Coccobacilli consistent with shift in vaginal diya. HPV mRNA E6/E7: NOT DETECTED This assay detects E6/E7 viral messenger RNA (mRNA) from 14 high-risk HPV types (16, 18, 31, 33, 35, 39, 45, 51, 52, 56, 58, 59, 66, 68) HPV testing performed by [facility] [facility], [place], [place]. See reference laboratory portion of the EMR for entire report. Clinical Information LMP: 04/17/23 Previous PAP test: 02/02/17, WNL Material Received ThinPrep-Cervical Copies To: Saniya Henson [address] [place] [address] Lex Urena MD [address] [place] [address] [address] ----- ------- Signed (signature on file) Sejal Nicki Easley 05/10/23 1921 ----- ------- END OF REPORT us Generic External Data Provider LAB CYTOLOGY JOSH ROPER Final Result [facility] [address] [place], [place] [phone] from Last 3 Months or Most Recently Relevant to Health Maintenance Insurance [email or web address] C3 Care Teams Fusing Machine Tender Relationship Specialty Start Date End Date Saniya Henson FNP [address] [place] [address] PCP - General Family Medicine 10/06/21
--- OUTSIDE RECORDS SUMMARY | 2024-09-10 13:55 | XMS_ITS | Clinical Summary ---
Author Organization [facility] Address [address] [place] [address] Phone Care Team Providers Care Mobile Security Specialist Name Role Phone Physician, Pcp Unknown Primary Care Provider Hope vailable Allergies No known active allergies Medications cetirizine (ZyrTEC) 10 mg tablet Take 1 tablet (10 mg total) by mouth 1 (one) time each day. 30 each 05/05/2024 Active Encounters Date Type Department Care Team Description 07/18/2024 12:05 AM EDT - 07/18/2024 3:[address] [facility] [address] [place] [address] Discharge Disposition: Home or Self Care from [...] Sign Reading Time Taken Comments Blood Pressure 126/92 07/18/2024 12:08 AM EDT Pulse 99 07/18/2024 12:08 AM EDT Temperature 37.1 C (98.8 F) 07/18/2024 12:08 AM EDT Respiratory Rate 16 07/18/2024 12:08 AM EDT Oxygen Saturation 98% 07/18/2024 12:08 AM EDT Inhaled Oxygen Concentration - - Weight 58.1 kg (128 lb) 07/18/2024 12:08 AM EDT Height 149.9 cm (4' 11 ) 07/18/2024 12:08 AM EDT Body Mass Index 25.85 07/18/2024 12:08 AM EDT Plan of Treatment Health Maintenance Due Date Last Done Comments DTaP,Tdap,and Td Vaccines (1 - Tdap) 2009 Hepatitis B Vaccines (1 of 3 - 19+ 3-dose series) 2009 HIV Screening 11/16/2023 Hepatitis C Screening 11/16/2023 Social Influencers of Health Screening 11/16/2023 Depression Screening 02/07/2024 Influenza Vaccine (#1) 2024 Cervical Cancer Screening: P ap Smear 04/26/2026 [...] 5 Years) and At-Risk Patients (6 to 49 Years) Aged Out No longer eligible b ased on patient's age to complete this topic RSV Immunization Patients Under 20 months Aged Out No longer eligible b ased on patient's age to complete this topic Varicella Vaccines Aged Out No longer eligible based on patient's age to complete this topic Insurance MEDICAID - [place] Care Teams Mobile Security Specialist Relationship Specialty Start Date End Date Physician, Pcp Unknown PCP - General 05/04/24
[2024-09-10 16:08] LABS: MANUAL DIFF FLAG NO
[2024-09-10 16:17] LABS: Hematocrit 34.0 % (37.0-47.0); Hemoglobin 11.4 g/dl (12.0-16.0); Imm Gran Abs Auto 0.02 X10*3/uL (0.00-0.03); Imm Gran Pct Auto 0.3 % (0.0-0.4); Lymphocytes Absolute Auto 1.5 X10*3/uL (1.2-4.9); Mean Corpuscular HGB Conc 33.5 g/dl (31.0-35.0); Mean Corpuscular Hemoglobin 29.1 pg (27.0-33.0); Mean Corpuscular Volume 86.7 fL (80.0-98.0); NRBC Abs Auto 0.000 X10*3/uL (0.0-0.012); NRBC Pct Auto 0.0 /100WBC (0.0-0.2); Platelet Count 465 X10*3/uL (160-400); Red Blood Count 3.92 X10*6/uL (4.20-5.50); White Blood Count 7.7 X10*3/uL (4.8-10.8)
[2024-09-10 16:23] LABS: INTERNATIONAL NORM RATIO 1.1 (0.9-1.1); Prothrombin Time 12.4 SEC (10.9-12.4)
[2024-09-10 16:26] LABS: Partial Thromboplastin Time 31.9 SEC (26.7-34.1)
[2024-09-10 16:45] LABS: Iron 101 mcg/dL (30-160); Percent Iron Saturation 32 % (15-50); Total Iron Binding Capacity 318 mcg/dL (228-428); Unsaturated Iron Binding 217 ug/dL
== END 2024-09-10 13:17 | disposition home or self-care (01) ==
LOC: HO.HHCL 13:16
PROVIDERS: PCP Registered Nurse
DX: Z86.2 Personal history of diseases of the blood and blood-forming organs and certain disorders involving the immune mechanism (principal)
CPT/HCPCS: 83540; 84443; 85025; 85610; 85730